=== PATIENT | male | born 1960 | race Caucasian/White ===

== ENCOUNTER → 2018-05-16 | Outpatient (CLI) | payer BC ==
[~2018-05-16] MED LIST: ACET325 PO; AZELASTINE137 MCG/0.; Alavert D-12 A1 EACH PO; Amitiza24 MCG; Aspir 8181 MG PO; BACL10 PO; Baclofen20 MG PO; Balanced B-1001 EACH PO; CHOLEST OFF PL450 MG PO; CO Q10200 MG PO; CYAN500 PO; Coenzyme Q10200 M2 PO; Depo-Testos200 MG/ML IM; Diclofenac Pota50 MG PO; Diovan Hct 1601 EACH PO; EPA-DHA 720 SO1 EACH PO; FAMC500 PO; Flax Oil1000 MG PO; GABA300 PO; GABA600 PO; Garlic500 MG PO; LATA.005SO RIGHTEYE; LATANOPROST 0.7.5 ML RIGHTEYE; LAVAP17G PO; LEVFLO500 PO; LINZESS290 MCG PO; MIRALAX17 GM PO; MOMENI; MOVANTIK25 MG PO; Mobic15 MG PO; Multiple Vitam1 EAC1 PO; NUVIGIL250 MG PO; OCREVUS300 MG/10 IV; OLMESARTAN-HCT1 EAC2 PO; OMEP40CA12 PO; OXYC30ER PO; OXYC40ER PO; OXYC5 PO; Omeprazole20 M1 PO; Oxycontin20 MG PO; PSEU120ER PO; Prilosec Otc20 MG PO; Rapaflo4 MG PO; Rapaflo8 MG PO; SENN187 PO; TAMSULOSIN HCL0.4 MG PO; TECFIDERA240 MG PO; TIMO.5OPSO RIGHTEYE; TIMOLOL 0.5%-DO10 ML BOTHEYES; Tysabri300 MG/15 IV; UBID10 PO; VITAMIN D32000 UNI1 PO; Viagra100 MG PO; Vitamin C1000 M1 PO; XYZAL5 MG PO; Xyzal5 MG PO; Zanaflex4 M1 PO; Zanaflex4 MG PO; [UNRECOGNIZED DRUG - OTHER] TOP
[2018-05-17 16:41] LABS: Appearance, Urine Cloudy (Clear); Bilirubin, Urine Neg (Neg); Blood, Urine 1+ (Neg); Color, Urine Yellow (P-Yellow); Glucose Qualitative, Urine Neg (Neg); Ketones, Urine Neg (Neg); Leukocyte Esterase, Urine 3+ (Neg); Nitrite, Urine Pos (Neg); Protein, Urine Neg (Neg); Urobilinogen, Urine NORM (Normal)
[2018-05-17 16:57] LABS: Bacteria Many /hpf; Red Blood Cells, Urine 0-2 /hpf (0-2); Squamous Epithelial Cells Not Seen /hpf (Few); Triple Phosphate Crystals Many /hpf
== END | disposition home or self-care (01) ==
LOC: LAB 20:00 → LAB SHORT 20:00
PROVIDERS: Psychiatry & Neurology Neurology
DX: R82.90 Unspecified abnormal findings in urine (principal); R30.0 Dysuria
CPT/HCPCS: 81001; 87077; 87086; 87186

== ENCOUNTER → 2018-06-04 | Outpatient (CLI) | payer BC ==
[2018-06-04 14:18] LABS: U Amphetamine Screen Not Detected; U Barbituate Screen Not Detected; U Benzodiazapine Screen Not Detected; U Buprenorphine Screen Not Detected; U Cannabinoids Screen Not Detected; U Cocaine Screen Not Detected; U Methadone Screen Not Detected; U Methamphetamine Screen Not Detected; U Opiates Screen Not Detected; U Oxycodone Screen DETECTED; U Phencyclidine Screen Not Detected; U Propoxyphene Screen Not Detected
== END | disposition home or self-care (01) ==
LOC: LAB 12:44 → LAB SHORT 12:44
PROVIDERS: Family Medicine
DX: G89.29 Other chronic pain (principal); G89.4 Chronic pain syndrome

== ENCOUNTER → 2018-06-11 | Outpatient (CLI) | payer BC | END | disposition home or self-care (01) | LOC: LAB SHORT 17:51 → LAB 17:51 | DX: R30.0 Dysuria (principal); R82.90 Unspecified abnormal findings in urine | CPT/HCPCS: 87077; 87086; 87186 ==

== ENCOUNTER 2018-08-16 08:55 | Day surgery (SDC) | payer BC ==
[~2018-08-16] VITALS: Ht 188 cm; Wt 123.5 kg
== END 2018-08-16 11:17 | disposition home or self-care (01) ==
LOC: ORSCSDS 08:55
PROVIDERS: Internal Medicine Gastroenterology
PROC: 0DJD8ZZ Inspection of Lower Intestinal Tract, Via Natural or Artificial Opening Endoscopic (ICD-10-PCS; principal; 2018-08-16 10:15)
DX: Z12.11 Encounter for screening for malignant neoplasm of colon (principal); G35 Multiple sclerosis; G47.33 Obstructive sleep apnea (adult) (pediatric); K21.9 Gastro-esophageal reflux disease without esophagitis; I10 Essential (primary) hypertension; Z79.899 Other long term (current) drug therapy
CPT/HCPCS: J2704; J7120

== ENCOUNTER → 2018-09-02 | Outpatient (CLI) | payer BC ==
[2018-09-02 08:09] LABS: Bilirubin, Urine Neg (Neg); Blood, Urine Neg (Neg); Glucose Qualitative, Urine Neg (Neg); Ketones, Urine 1+ (Neg); Leukocyte Esterase, Urine 2+ (Neg); Nitrite, Urine Neg (Neg); Protein, Urine 1+ (Neg); Urobilinogen, Urine 1+ (Normal)
[2018-09-02 08:16] LABS: Appearance, Urine Hazy (Clear); Bacteria Mod /hpf; Color, Urine Yellow (P-Yellow); Red Blood Cells, Urine Not Seen /hpf (0-2); Squamous Epithelial Cells Few /hpf (Few)
== END | disposition home or self-care (01) ==
LOC: LAB SHORT 06:20 → LAB 06:20
PROVIDERS: Psychiatry & Neurology Neurology
DX: R30.0 Dysuria (principal); R82.998 Other abnormal findings in urine
CPT/HCPCS: 81001; 87077; 87086; 87186

== ENCOUNTER → 2019-01-20 | Outpatient (CLI) | payer BC ==
[2019-01-20 19:15] LABS: U Amphetamine Screen Not Detected; U Barbituate Screen Not Detected; U Benzodiazapine Screen Not Detected; U Buprenorphine Screen Not Detected; U Cannabinoids Screen Not Detected; U Cocaine Screen Not Detected; U Methadone Screen Not Detected; U Methamphetamine Screen Not Detected; U Opiates Screen Not Detected; U Oxycodone Screen DETECTED; U Phencyclidine Screen Not Detected; U Propoxyphene Screen Not Detected
== END ==
LOC: LAB SHORT 18:20 → LAB 18:20
PROVIDERS: Family Medicine
DX: Z51.81 Encounter for therapeutic drug level monitoring (principal); Z79.899 Other long term (current) drug therapy

== ENCOUNTER → 2019-05-01 | Outpatient (CLI) | payer BC ==
[2019-05-02 09:17] LABS: Source, Urine Catheter
[2019-05-02 11:51] LABS: Appearance, Urine Clear (Clear); Bilirubin, Urine Neg (Neg); Blood, Urine 1+ (Neg); Color, Urine Yellow (P-Yellow); Glucose Qualitative, Urine Neg (Neg); Ketones, Urine Neg (Neg); Leukocyte Esterase, Urine 2+ (Neg); Nitrite, Urine Pos (Neg); Protein, Urine Neg (Neg); Urobilinogen, Urine NORM (Normal)
[2019-05-02 12:05] LABS: Bacteria Many /hpf; Red Blood Cells, Urine 0-2 /hpf (0-2); Squamous Epithelial Cells Rare /hpf (Few)
== END ==
LOC: LAB SHORT 14:00 → LAB 14:00 → LAB FUT 09-04 20:25
PROVIDERS: Family Medicine
DX: N39.41 Urge incontinence (principal); R30.0 Dysuria; R82.90 Unspecified abnormal findings in urine
CPT/HCPCS: 81001; 87077; 87086; 87186

== ENCOUNTER 2020-10-25 10:11 | Inpatient (IN) | payer BC ==
[~2020-10-25] VITALS: Ht 188 cm; Wt 112.0 kg
[2020-10-25 11:15] LABS: BASOPHILS ABSOLUTE AUTO 0.05 K/mm3 (0.00-0.23); BASOPHILS PERCENT AUTO 0 % (0-2); EOSINOPHILS PERCENT AUTO 0 % (0-6); Hematocrit 54.3 % (37.0-53.0); Hemoglobin 19.4 g/dL (13.5-17.5); IMMATURE GRAN ABSOLUTE AUTO 0.16 K/mm3 (0.00-0.10); IMMATURE GRAN PERCENT AUTO 1 % (0-1); LYMPHOCYTES ABSOLUTE AUTO 0.69 K/mm3 (0.84-5.20); LYMPHOCYTES PERCENT AUTO 3 % (21-46); MONOCYTES ABSOLUTE AUTO 0.96 K/mm3 (0.16-1.47); MONOCYTES PERCENT AUTO 4 % (4-13); Mean Corpuscular HGB Conc 35.7 g/dL (31.5-36.5); Mean Corpuscular Volume 87 fL (80-100); NEUTROPHILS ABSOLUTE AUTO 20.87 K/mm3 (1.96-9.15); NEUTROPHILS PERCENT AUTO 92 % (41-73); Platelet Count 236 K/mm3 (150-400); RDW Coefficient Variation 12.3 % (11.7-14.2); RDW Standard Deviation 39.1 fL (35.1-46.3); Red Blood Cell Count 6.25 M/mm3 (4.30-5.90); White Blood Cell Count 22.73 K/mm3 (4.00-11.30)
[2020-10-25 11:23] LABS: Source, Urine Catheter
[2020-10-25 11:25] LABS: Appearance, Urine Clear (Clear); Bilirubin, Urine Neg (Neg); Blood, Urine Neg (Neg); Color, Urine Yellow (P-Yellow); Glucose Qualitative, Urine 4+ (Neg); Ketones, Urine 3+ (Neg); Leukocyte Esterase, Urine 1+ (Neg); Nitrite, Urine Neg (Neg); Protein, Urine Neg (Neg); Urobilinogen, Urine NORM (Normal)
[2020-10-25 11:31] LABS: Troponin I <0.015 ng/mL (0.000-0.040)
[2020-10-25 11:58] LABS: Alanine Aminotransfer (ALT/SGP 39 U/L (12-78); Albumin, Blood 4.2 g/dL (3.4-5.0); Alk Phos 230 U/L (50-136); Anion Gap 17 mmol/L (6-16); Aspartate Aminotrans (AST/SGOT 22 U/L (12-37); Bilirubin, Total 1.3 mg/dL (0.1-1.0); Blood Urea Nitrogen 25 mg/dL (8-24); Bun/Creatinine Ratio 20.2 (12.0-20.0); CO2, Blood 22 mmol/L (21-32); Calcium, Blood 10.6 mg/dL (8.5-10.1); Chloride, Blood 96 mmol/L (98-108); Creatinine, Blood 1.24 mg/dL (0.60-1.20); Globulin, Blood 4.1 g/dL (2.2-4.0); Glomerular Filtration Rate >60 (60-); Glucose, Blood 743 mg/dL (70-99); Potassium, Blood 4.5 mmol/L (3.5-5.5); Sodium, Blood 135 mmol/L (136-145); Total Protein, Blood 8.3 g/dL (6.4-8.2)
[2020-10-25 11:58] LABS: Red Blood Cells, Urine 0-2 /hpf (0-2)
[2020-10-25 11:59] LABS: Bacteria Rare /hpf; Squamous Epithelial Cells Rare /hpf (Few); Yeast/Fungi Urine Few /hpf
[2020-10-25] MEDS ORDERED: CYMBALTA30 M2 PO (12:33)
[2020-10-25] MEDS ORDERED: DEPO-TESTO200 MG/13 IM (12:35)
[2020-10-25] MEDS ORDERED: LEVOCETIRIZINE D5 MG PO (12:35)
[2020-10-25] MEDS ORDERED: PSEU120ER PO (12:36)
[2020-10-25] MEDS ORDERED: ZANAFLEX4 M5 PO (12:37)
[2020-10-25] MEDS ORDERED: IRBESARTAN-HCT1 EAC3 PO (12:37)
[2020-10-25] MEDS ORDERED: OMEP20ER PO (12:37)
[2020-10-25] MEDS ORDERED: ISTALOL2.5 M2 BOTHEYES (12:38)
[2020-10-25] MEDS ORDERED: SILODOSIN8 MG PO (12:38)
[2020-10-25] MEDS ORDERED: MOBIC15 MG PO (12:38)
[2020-10-25] MEDS ORDERED: FLONASE ALLERG9.9 ML (12:44)
[2020-10-25 13:00] LABS: Base Excess Venous -3.5 mmol/L; PCO2 Venous 38.1 mmHg (38-42); PO2 Venous 119 mmHg (38-42); pH Blood Venous 7.37 (7.34-7.37)
[2020-10-25] MEDS ORDERED: Aspirin EC81 MG PO (13:22)
[2020-10-25] MEDS ORDERED: BACL10 PO (13:24)
[2020-10-25] MEDS ORDERED: NITROFURANTOIN PO (13:27)
[2020-10-25] MEDS ORDERED: MULVITA PO (13:29)
[2020-10-25] MEDS ORDERED: THERA-D2000 UNIT PO (13:29)
[2020-10-25 15:39] LABS: Anion Gap 13 mmol/L (6-16); Blood Urea Nitrogen 22 mg/dL (8-24); Bun/Creatinine Ratio 18.8 (12.0-20.0); CO2, Blood 24 mmol/L (21-32); Calcium, Blood 10.4 mg/dL (8.5-10.1); Chloride, Blood 106 mmol/L (98-108); Creatinine, Blood 1.17 mg/dL (0.60-1.20); Glomerular Filtration Rate >60 (60-); Glucose, Blood 447 mg/dL (70-99); Potassium, Blood 4.3 mmol/L (3.5-5.5); Sodium, Blood 143 mmol/L (136-145)
[2020-10-25 19:02] LABS: Source, Urine Catheter
[2020-10-25 19:07] LABS: Appearance, Urine Clear (Clear); Bilirubin, Urine Neg (Neg); Blood, Urine Neg (Neg); Color, Urine Yellow (P-Yellow); Glucose Qualitative, Urine 4+ (Neg); Ketones, Urine 4+ (Neg); Leukocyte Esterase, Urine Neg (Neg); Nitrite, Urine Neg (Neg); Protein, Urine 1+ (Neg); Urobilinogen, Urine NORM (Normal)
--- NOTE | 2020-10-25 19:22 | NUR ---
ADMIT NOTE RECEIVED REPORT FROM LUCERO PT TO ROOM VIA SHARIF, 4 PERSON TRANSFER ASSIST WITH SLIDER SHEET. PT AND SPOUSE ORIENTED TO ROOM AND CALL LIGHT. EDCUATED ON FALL RISK AND BED ALARM. SPOUSE REPORTS FOR APPROX 1-2 WEEKS PT HAS BEEN FEELIN WEAKER, FATIGUED, DIFFICULTY SWALLOWING AND INCREASED WEIGHT LOSS. PT RESPONDING TO VERBAL STIMULI, QUICKLY FALLING BACK TO SLEEP, ORIENTED x4. PT ON RA, SPO2 >94%. PT REPORTS BACK PAIN, SPASAMS, MEDCIATED PER EMAR. PT DENIES NAUSEA, SOB AND DIZZINESS. PT MOVES ALL EXTREMITIES, WEAK. USES WALKER AND ELECTRIC WHEELCHAIR AT HOME TO GET AROUND. RASH TO RIGHT FOREARM MARKED PER ORDERS. BARLOW PLACED, UA SENT PER PROTOCOL. VSS. NO OTHER ACUTE CHANGE NOTED. REPORT GIVEN TO ONCOMING RN.
[2020-10-25 20:46] LABS: Anion Gap 14 mmol/L (6-16); Blood Urea Nitrogen 22 mg/dL (8-24); CO2, Blood 22 mmol/L (21-32); Calcium, Blood 9.6 mg/dL (8.5-10.1); Chloride, Blood 111 mmol/L (98-108); Creatinine, Blood 1.05 mg/dL (0.60-1.20); Glomerular Filtration Rate >60 (60-); Glucose, Blood 351 mg/dL (70-99); Potassium, Blood 3.5 mmol/L (3.5-5.5); Sodium, Blood 147 mmol/L (136-145)
--- NOTE | 2020-10-25 21:10 | NUR ---
HOSPITALIST CONSULTED AC GLUCOSE ORDER VERIFIED WITH HOSPITALIST AT THIS TIME. GLUSCOSE OF 351 OBTAINED BY LAB @1999 WITH NO INSULIN COVERAGE ORDERED. NEW ORDER IS GLUCOSE CHECKS Q2, CALL IF BLOOD SUGAR >350. REPEAT LACTIC ACID ALSO ORDERED AT THIS TIME. IV FLUIDS TO REMAIN @100 ML/HR. PT REMAINS A&O X4. BIOLOGICAL LAB TECHNICIAN NOTIFIED.
[2020-10-26 00:33] LABS: BASOPHILS ABSOLUTE AUTO 0.03 K/mm3 (0.00-0.23); BASOPHILS PERCENT AUTO 0 % (0-2); EOSINOPHILS PERCENT AUTO 0 % (0-6); Hematocrit 49.9 % (37.0-53.0); IMMATURE GRAN ABSOLUTE AUTO 0.13 K/mm3 (0.00-0.10); IMMATURE GRAN PERCENT AUTO 1 % (0-1); LYMPHOCYTES ABSOLUTE AUTO 1.16 K/mm3 (0.84-5.20); LYMPHOCYTES PERCENT AUTO 5 % (21-46); MONOCYTES ABSOLUTE AUTO 0.94 K/mm3 (0.16-1.47); MONOCYTES PERCENT AUTO 4 % (4-13); Mean Corpuscular HGB 31.3 pg (26.0-34.0); Mean Corpuscular HGB Conc 36.1 g/dL (31.5-36.5); Mean Corpuscular Volume 87 fL (80-100); Mean Platelet Volume 11.2 fL (9.1-12.4); NEUTROPHILS ABSOLUTE AUTO 20.02 K/mm3 (1.96-9.15); NEUTROPHILS PERCENT AUTO 90 % (41-73); Platelet Count 245 K/mm3 (150-400); RDW Coefficient Variation 12.8 % (11.7-14.2); RDW Standard Deviation 40.4 fL (35.1-46.3); Red Blood Cell Count 5.75 M/mm3 (4.30-5.90); White Blood Cell Count 22.28 K/mm3 (4.00-11.30)
[2020-10-26 00:48] LABS: Anion Gap 10 mmol/L (6-16); Blood Urea Nitrogen 22 mg/dL (8-24); Bun/Creatinine Ratio 22.9 (12.0-20.0); CO2, Blood 25 mmol/L (21-32); Calcium, Blood 9.2 mg/dL (8.5-10.1); Chloride, Blood 112 mmol/L (98-108); Creatinine, Blood 0.96 mg/dL (0.60-1.20); Glomerular Filtration Rate >60 (60-); Glucose, Blood 280 mg/dL (70-99); Magnesium, Blood 2.5 mg/dL (1.6-2.4); Phosphorus, Blood 2.6 mg/dL (2.5-4.9); Potassium, Blood 3.4 mmol/L (3.5-5.5); Sodium, Blood 147 mmol/L (136-145)
--- NOTE | 2020-10-26 07:37 | NUR ---
SHIFT SUMMARY PT HAS DONE WELL THROUGH THE NIGHT. PAIN MEDICATED PER EMAR WITH IV FENTANYL & DIAZAPAM. REPOSITIONING & GLUCOSE CHECKS Q2 HOURS, ORAL CARE PROVIDED. NO ACUTE CHANGES NOTED TO RIGHT ARM, SWELLING & REDNESS REMAIN WITHIN TRACED AREA. VSS, ON RA, CALL LIGHT IN REACH. REPORT GIVEN TO DAY RN.
[2020-10-26 07:41] LABS: Glucose, Blood 320 mg/dL (70-99)
[2020-10-26 09:16] LABS: Albumin, Blood 3.3 g/dL (3.4-5.0); Anion Gap 18 mmol/L (6-16); Blood Urea Nitrogen 24 mg/dL (8-24); Bun/Creatinine Ratio 23.8 (12.0-20.0); CO2, Blood 19 mmol/L (21-32); Calcium, Blood 9.2 mg/dL (8.5-10.1); Chloride, Blood 112 mmol/L (98-108); Creatinine, Blood 1.01 mg/dL (0.60-1.20); Glomerular Filtration Rate >60 (60-); Glucose, Blood 316 mg/dL (70-99); Magnesium, Blood 2.6 mg/dL (1.6-2.4); Phosphorus, Blood 3.3 mg/dL (2.5-4.9); Potassium, Blood 3.7 mmol/L (3.5-5.5); Sodium, Blood 149 mmol/L (136-145)
[2020-10-26 16:32] LABS: Albumin, Blood 3.1 g/dL (3.4-5.0); Anion Gap 13 mmol/L (6-16); Blood Urea Nitrogen 28 mg/dL (8-24); Bun/Creatinine Ratio 28.6 (12.0-20.0); CO2, Blood 22 mmol/L (21-32); Calcium, Blood 9.2 mg/dL (8.5-10.1); Chloride, Blood 118 mmol/L (98-108); Creatinine, Blood 0.98 mg/dL (0.60-1.20); Glomerular Filtration Rate >60 (60-); Glucose, Blood 260 mg/dL (70-99); Phosphorus, Blood 1.8 mg/dL (2.5-4.9); Potassium, Blood 3.4 mmol/L (3.5-5.5); Sodium, Blood 153 mmol/L (136-145)
--- NOTE | 2020-10-26 17:03 | NUR ---
SHIFT SUMMARY PT A&Ox4; CALM AND COOPERTIAVE WITH CARE. PT RESTING IN BED. REPOSITIONED FOR COMFORT/PRESSURE ULCER PREVENTION. PT REPORTS BACK PAIN, MEDICATED x1 WITH FENT WITH POSITIVE RESULTS. PT DENIES CHEST PAIN, SOB, NASUEA AND DIZZINESS. PT RECEIVIED IV ANTIBIOTICS, FLUIDS AND KPHOS. BLOOD GLUCOSE APPEARS TO BE TRENDING DOWN. BARLOW PATENT AND DRAINING. VSS. NO OTHER ACUTE CHANGES NOTED DURING SHIFT. WILL CONTINUE TO MONITOR UNITL REPORT GIVEN TO ONCOMING RN.
--- NOTE | 2020-10-26 19:52 | NUR ---
ORDERS FOR POTASSIUM PHOSPHATE 30MM IN 1/[address] CLAY, WRITTEN ORDERS SENT TO PHARMACY DURING DOWNTIME CHARTING. MEDICATION STARTED AND CHARTED ON DOWNTIME CHART, MEDICATIONS IS CURRENTLY INFUSING.
[2020-10-27 03:46] LABS: BASOPHILS ABSOLUTE AUTO 0.02 K/mm3 (0.00-0.23); BASOPHILS PERCENT AUTO 0 % (0-2); EOSINOPHILS PERCENT AUTO 0 % (0-6); Hemoglobin 16.5 g/dL (13.5-17.5); IMMATURE GRAN ABSOLUTE AUTO 0.13 K/mm3 (0.00-0.10); IMMATURE GRAN PERCENT AUTO 1 % (0-1); LYMPHOCYTES ABSOLUTE AUTO 1.01 K/mm3 (0.84-5.20); LYMPHOCYTES PERCENT AUTO 6 % (21-46); MONOCYTES ABSOLUTE AUTO 0.88 K/mm3 (0.16-1.47); MONOCYTES PERCENT AUTO 5 % (4-13); Mean Corpuscular HGB 30.7 pg (26.0-34.0); Mean Corpuscular HGB Conc 34.4 g/dL (31.5-36.5); Mean Corpuscular Volume 89 fL (80-100); Mean Platelet Volume 11.1 fL (9.1-12.4); NEUTROPHILS ABSOLUTE AUTO 14.35 K/mm3 (1.96-9.15); NEUTROPHILS PERCENT AUTO 88 % (41-73); Platelet Count 209 K/mm3 (150-400); RDW Coefficient Variation 13.5 % (11.7-14.2); RDW Standard Deviation 44.6 fL (35.1-46.3); Red Blood Cell Count 5.37 M/mm3 (4.30-5.90); White Blood Cell Count 16.39 K/mm3 (4.00-11.30)
[2020-10-27 04:09] LABS: Albumin, Blood 2.9 g/dL (3.4-5.0); Anion Gap 12 mmol/L (6-16); Blood Urea Nitrogen 32 mg/dL (8-24); Bun/Creatinine Ratio 31.7 (12.0-20.0); CO2, Blood 23 mmol/L (21-32); Calcium, Blood 9.1 mg/dL (8.5-10.1); Chloride, Blood 121 mmol/L (98-108); Creatinine, Blood 1.01 mg/dL (0.60-1.20); Glomerular Filtration Rate >60 (60-); Glucose, Blood 234 mg/dL (70-99); Magnesium, Blood 2.7 mg/dL (1.6-2.4); Potassium, Blood 3.7 mmol/L (3.5-5.5); Sodium, Blood 156 mmol/L (136-145)
[2020-10-27 04:11] LABS: Phosphorus, Blood 4.8 mg/dL (2.5-4.9)
--- NOTE | 2020-10-27 05:57 | NUR ---
PATIENT RECEIVED LITTLE SLEEP THIS EVENING REQUESTING REPOSITIONING [id number] RELATED TO PAIN, CALLED MD RECEIVED NEW ORDERS AND PATIENT FELL ASLEEP AROUND 0400, PATIENT IS ALERT AND ORIENTATED ABLE TO MAKE NEEDS KNOWN, BARLOW CATETHER IS PATIENT, STAT LOCK IN PLACE AND BARLOW CARE PROVIDED, ORAL CARE WAS GIVEN Q4HRS AND PRN WITH PATIENT REQUEST. MD ADJUSTED PATIENT FLUIDS AND INCREASED INSULIN SLIDING SCALE FROM LOW TO MEDIUM COVERAGE.
--- NOTE | 2020-10-27 09:27 | NUR ---
Alerted by PCT/ACC that pt had heart rate of 54 bpm. He just received IV dilaudid. Vital signs taken, pt states he is feeling less pain, and has no adverse symptoms. Blood pressure remains slightly elevated, but not as high as this morning. He was repositioned earlier after pain medication was given for c/o lower back pain. Egg crate mattress applied to bed and he was repositioned to comfort.
--- NOTE | 2020-10-27 11:52 | NUR ---
IV compatibility of rocephin and D5W verified at this time. ORal care given. Pt states pain leveled off at 5/10, which he states is "better" and "OK". Declines repositioning at this time.
--- NOTE | 2020-10-27 13:37 | NUR ---
Saline locked IV while working with physical therapist Nicola. at bedside.
[2020-10-27 14:26] LABS: Albumin, Blood 3.2 g/dL (3.4-5.0); Anion Gap 7 mmol/L (6-16); Blood Urea Nitrogen 32 mg/dL (8-24); Bun/Creatinine Ratio 29.9 (12.0-20.0); CO2, Blood 29 mmol/L (21-32); Calcium, Blood 9.6 mg/dL (8.5-10.1); Chloride, Blood 119 mmol/L (98-108); Creatinine, Blood 1.07 mg/dL (0.60-1.20); Glomerular Filtration Rate >60 (60-); Glucose, Blood 246 mg/dL (70-99); Potassium, Blood 3.7 mmol/L (3.5-5.5); Sodium, Blood 155 mmol/L (136-145)
--- NOTE | 2020-10-27 15:00 | NUR ---
Speech therapist Nimco may not be able to see the patient until tomorrow, because of her workload today, but she will definitely see the patient tomorrow, she says. This information was passed along to the patient and his . They expressed disappointment that it may not be until then. Oral care was again done for pt comfort and hygeine. acknowledges that the NPO status is for his "safety."
--- NOTE | 2020-10-28 02:54 | NUR ---
THIS LN TOOK OVER CARE AT 1855 PATIENT IS RESTING IN BED BEGINNING OF SHIFT COMFORTABLY AT 1930 PATIENT ASKED FOR PAIN MEDICATION, PATIENT WAS GIVEN A ONE TIME DOSE OF DILAUDID 1MG IVP AND CURRENT PRN DOSAGE WAS CHANGED FROM DILAUDID 0.5MG IVP Q4P TO 1MG IVP Q4P. PATIENT PAIN CONTROL HAS NOT BEEN CONTROLLED THIS EVENING, REPOSITION AND DISTRACTION UNABLE TO HELP INBETWEEN PAIN MEDICATION. PATIENT DURING THE DAY WAS REPORTED THAT THE DILAUDID 1MG PRN WAS HELPFUL TO HIM. ORAL CARE WAS PROVIDED THROUGH OUT EACH ENCOUNTER AND REPOSITION ABOUT Q1HR. WILL CONTINUE TO MONITOR PAIN AND PROVIDE COMFORT, DISTRACTION, REPOSITIONING AND PAIN MEDICATION WHEN NEEDED.
[2020-10-28 04:00] LABS: Hematocrit 46.4 % (37.0-53.0); Hemoglobin 16.1 g/dL (13.5-17.5); Mean Corpuscular HGB 31.5 pg (26.0-34.0); Mean Corpuscular HGB Conc 34.7 g/dL (31.5-36.5); Mean Corpuscular Volume 91 fL (80-100); Mean Platelet Volume 10.8 fL (9.1-12.4); Platelet Count 173 K/mm3 (150-400); RDW Coefficient Variation 13.3 % (11.7-14.2); RDW Standard Deviation 45.4 fL (35.1-46.3); Red Blood Cell Count 5.11 M/mm3 (4.30-5.90); White Blood Cell Count 10.79 K/mm3 (4.00-11.30)
[2020-10-28 04:20] LABS: Albumin, Blood 2.7 g/dL (3.4-5.0); Anion Gap 6 mmol/L (6-16); Blood Urea Nitrogen 30 mg/dL (8-24); Bun/Creatinine Ratio 31.9 (12.0-20.0); CO2, Blood 28 mmol/L (21-32); Calcium, Blood 9.3 mg/dL (8.5-10.1); Chloride, Blood 120 mmol/L (98-108); Creatinine, Blood 0.94 mg/dL (0.60-1.20); Glomerular Filtration Rate >60 (60-); Glucose, Blood 248 mg/dL (70-99); Phosphorus, Blood 3.1 mg/dL (2.5-4.9); Potassium, Blood 3.2 mmol/L (3.5-5.5); Sodium, Blood 154 mmol/L (136-145)
--- NOTE | 2020-10-28 18:27 | NUR ---
PT CONTINUES TO HAVE ELEVATED CBG'S , INSULIN GIVEN PER EMAR. PT PASSED SWALLOW EVAL. POWER GLIDE PLACED THIS SHIFT . AT BEDSIDE AND ASSISTS WITH PATIENT CARE NEEDED. PT IS ABLE TO EXPRESS ANY NEEDS AND IS A/0 X4. PT WORKED WITH PT THIS SHIFT. TOLERATED WELL. CALL LIGHT WITHIN REACH.
[2020-10-29 04:36] LABS: Hematocrit 42.8 % (37.0-53.0); Hemoglobin 14.8 g/dL (13.5-17.5); Mean Corpuscular HGB Conc 34.6 g/dL (31.5-36.5); Mean Corpuscular Volume 90 fL (80-100); Mean Platelet Volume 10.6 fL (9.1-12.4); Platelet Count 149 K/mm3 (150-400); RDW Coefficient Variation 12.6 % (11.7-14.2); RDW Standard Deviation 41.8 fL (35.1-46.3); Red Blood Cell Count 4.78 M/mm3 (4.30-5.90); White Blood Cell Count 7.77 K/mm3 (4.00-11.30)
[2020-10-29 05:07] LABS: Albumin, Blood 2.5 g/dL (3.4-5.0); Anion Gap 3 mmol/L (6-16); Blood Urea Nitrogen 21 mg/dL (8-24); Bun/Creatinine Ratio 22.4 (12.0-20.0); CO2, Blood 31 mmol/L (21-32); Calcium, Blood 8.8 mg/dL (8.5-10.1); Chloride, Blood 108 mmol/L (98-108); Creatinine, Blood 0.94 mg/dL (0.60-1.20); Glomerular Filtration Rate >60 (60-); Glucose, Blood 258 mg/dL (70-99); Phosphorus, Blood 3.1 mg/dL (2.5-4.9); Potassium, Blood 3.2 mmol/L (3.5-5.5)
[2020-10-29 05:08] LABS: Sodium, Blood 142 mmol/L (136-145)
--- NOTE | 2020-10-29 06:14 | NUR ---
PATIENT SITTING UP IN BED UPON BEGINNING OF SHIFT, EATING, ABLE TO CALL APPROPRIATELY, ALERT AND ORIENTATED THROUGHOUT THE NIGHT, RECEIVED PRN PAIN MEDICATION X 2 THIS SHIFT. PATIENT SLEPT FOR ABOUT TWO HOURS THIS EVENING.
--- NOTE | 2020-10-29 08:00 | NUR ---
pt laying in bed awake a/ox3, pleasant and coopertive with care, follows commands well, denies pain at this time, states his night was ok, lungs are clear, dim in bases, resp even and unlabored, no cough noted, hrr, tele in place running sr per monitor, see strip, no edema noted, ppp+1, cap refill <4, sec, vs stable, afebrile, iv site to lfa is infiltrated, will remove, power glide to patricio site is clear and patent, btx4, abd flat soft nontender, voids without diff, skin c/w/d, rash to folds, left leg a bit weaker than right, states that is his baseline. telephone operator receptionist ar equal, godfrey, call light in reach.
--- NOTE | 2020-10-29 12:44 | NUR ---
DR. CLAY IN TO SEE PT, VERBAL ORDER RECIEVED TO CHANGE PT TO MEDICAL STATUS, D/C TELE.
--- NOTE | 2020-10-29 20:17 | NUR ---
SUMMARY PT IS ALERT AND ORIENTED. DENIED CHEST PAIN OR SOB. PT WAS IN CHAIR AND WAS TRANSFERED TO BED WITH MAX ASSITS OF THREE STAFF, FWW, AND GAIT BELT. PT STS THAT HE IS UNABLE TO MOVE LEFT LEG DUE TO MS. BARLOW IN PLACE AND DRAINING. PT SENT TO ROOM 304 ON MEDICAL FLOOR WITH ALL BELONGINGS. REPORT WAS GIVEN TO NURSE.
--- NOTE | 2020-10-30 04:03 | NUR ---
SHIFT SUMMARY ASSUMED CARE OF PT AT 1930. PT IS A/OX4. HEART SOUNDS REGULAR, LUNG SOUNDS CLEAR. PT BARLOW CATH WAS NOT WORKING UPON TRANSFER, BLADDER SCAN SHOWED 950 AFTER PT URINATED AROUND THE CATHETER, NEW BARLOW WAS INSERTED A SIZE BIGGER, URINE WAS INITIALLY CLEAR BUT THEN CHANTED TO A PINK COLOR. PT STATES HE HAS COMPLAINED OF PAIN SINCE 1400 BUT NO ONE LISTENED TO HIM. PT IS NOT FEELING BETTER, INTIAL AMOUNT DRAINED WAS 850. PT HAS REDNESS AND SWELLING ON HIS L HAND. PT ALSO HAS RED SPOTS IN HIS RICK AREA, MEDICATED PER EMAR. PT IS A 2P ROLL IN BED DUE TO MS. NO OTHER COMPLAINTS, PT SLEPT T/O THE NIGHT. CALL LIGHT IN REACH, BED IN LOWEST POSITION.
[2020-10-30 04:57] LABS: Albumin, Blood 2.5 g/dL (3.4-5.0); Anion Gap 4 mmol/L (6-16); Blood Urea Nitrogen 17 mg/dL (8-24); Bun/Creatinine Ratio 18.3 (12.0-20.0); CO2, Blood 29 mmol/L (21-32); Chloride, Blood 113 mmol/L (98-108); Creatinine, Blood 0.93 mg/dL (0.60-1.20); Glomerular Filtration Rate >60 (60-); Glucose, Blood 172 mg/dL (70-99); Phosphorus, Blood 4.2 mg/dL (2.5-4.9); Potassium, Blood 3.7 mmol/L (3.5-5.5); Sodium, Blood 146 mmol/L (136-145)
--- NOTE | 2020-10-30 17:10 | NUR ---
PT IS A/OX4, PLEASANT AND COOPERATIVE, THE PT IS UP WITH 1-2 PERSON ASSIST, THE PT WORKED WITH THE PHYSICAL THERAPIST TODAY AND WAS ASSISTED TO THE CHAIR AND SAT UP IN THE CHAIR FOR SEVERAL HOURS TODAY, THE PT APPEARED TO BE BREATHING EASILY ON RA T/O THE DAY, THE PT WAS MEDICATED FOR PAIN NEEDED PER HIS REQUEST, THE PT HAD A SOFT BROWN BM TODAY ANTIFUNGAL CREAM WAS APPLIED TO HIS RICK AREA, HEELS ELEVATED ON PILLOWS WHILE IN BED, CALL LIGHT IN REACH, WILL CONTINUE TO MONITOR AND ASSESS FOR CHANGES
--- NOTE | 2020-10-31 04:05 | NUR ---
SHIFT SUMMARY NO ACUTE CHANGS TO REPORT THIS SHIFT. PT HAS RESTED MOST OF THE NIGHT. MEDICATED FOR PAIN X1. BARLOW IN PLACE, PATENT AND DRAINING. PT DENIES NEEDS MOST OF THE NIGHT. BED IN LOWEST POSITION, CALL LIGHT WITHIN REACH.
[2020-10-31 05:25] LABS: Albumin, Blood 2.4 g/dL (3.4-5.0); Anion Gap 4 mmol/L (6-16); Blood Urea Nitrogen 13 mg/dL (8-24); CO2, Blood 29 mmol/L (21-32); Calcium, Blood 8.7 mg/dL (8.5-10.1); Chloride, Blood 111 mmol/L (98-108); Creatinine, Blood 0.86 mg/dL (0.60-1.20); Glomerular Filtration Rate >60 (60-); Glucose, Blood 222 mg/dL (70-99); Phosphorus, Blood 3.6 mg/dL (2.5-4.9); Potassium, Blood 3.5 mmol/L (3.5-5.5); Sodium, Blood 144 mmol/L (136-145)
--- NOTE | 2020-10-31 17:28 | NUR ---
PT IS A/OX3, PLEASANT AND COOPERATIVE, UP WITH 1-2 PERSON ASSIST TO THE CHAIR DUE TO MS. THE PT WAS UP IN CHAIR FOR SEVERAL HOURS TODAY, NOW BACK INTO BED, A BED BATH WAS GIVEN BY THE FINANCIAL DEALERS, THE PT WAS MEDICATED FOR PAIN NEEDED PER HIS REQUEST, THE PT APPEARS TO BE BREATHING EASILY ON RA AT THIS TIME, CALL LIGHT IN REACH, WILL CONTINUE TO MONITOR AND ASSESS FOR CHANGES
--- NOTE | 2020-10-31 18:31 | NUR ---
PT ARRIVED TO THE MEDICAL FLOOR VIA GURNEY FROM THE ER A/OX3, PLEASANT AND COOPERTIVE, REPORTS ONLY MILD CHEST PRESSURE AT THIS TIME, THE PT REPORTED SOME LIGHT HEADEDNESS WHEN STANDING, PT ORIENYED TO THE ROOM LAYOUT AND CALL SYSTEM, CALL LIGHT IN REACH
[2020-11-01 05:11] LABS: Albumin, Blood 2.3 g/dL (3.4-5.0); Anion Gap 3 mmol/L (6-16); Blood Urea Nitrogen 9 mg/dL (8-24); Bun/Creatinine Ratio 9.7 (12.0-20.0); CO2, Blood 29 mmol/L (21-32); Calcium, Blood 8.7 mg/dL (8.5-10.1); Chloride, Blood 110 mmol/L (98-108); Creatinine, Blood 0.93 mg/dL (0.60-1.20); Glomerular Filtration Rate >60 (60-); Glucose, Blood 181 mg/dL (70-99); Phosphorus, Blood 3.6 mg/dL (2.5-4.9); Potassium, Blood 3.5 mmol/L (3.5-5.5); Sodium, Blood 142 mmol/L (136-145)
--- NOTE | 2020-11-01 05:28 | NUR ---
SHIFT SUMMARY: PT IS ALERT AND ORIENTED. PT IS CALM, FRIENDLY AND COOPERATIVE WITH CARE. PT IS A 1-2 ASSIST FOR TRANSFERS. PT CALLS APPROPRIATELY. BARLOW PATENT AND DRAINING. IN VISITING AT THE START OF THE SHIFT. PT DENIES PAIN, NAUSEA, VOMITING, AND SOB. PT SLEPT MUCH OF THE NIGHT WHEN NOT DISTURBED. NO ACUTE CHANGES OR COMPLICATIONS. WILL REPORT TO DAY NURSE.
[2020-11-01 14:10] LABS: SARS-Cov-2 (COVID-19) PCR, MMC NEGATIVE (NEGATIVE)
--- NOTE | 2020-11-01 15:57 | NUR ---
SHIFT SUMMARY PT IS A&O, PLEASANT AND CO-OP. PT ADMITTED FOR SEPSIS R/T UTI. IV ABX GIVEN PER EMAR. BARLOW TO GRAVITY PATENT. PT WITH HX OF MS, REPORTED THAT HE NORMALLY SELF CATH'S, BUT HAS BEEN TOO WEAK TO PRESENT TO RESUME THAT. PT IS IMPROVING AND IS D/C'ING TO SNF FOR REHAB. PT TO RESUME SELF CATH WHEN ABLE. REPORT CALLED TO JOSE HEREDIA AT [facility] @ 1551. PT TO BE PICKED UP FOR TX AT 1600. STUART HEREDIA TO ASSIST TO W/C.
[2020-11-01] MEDS ORDERED: INSULANPEN SC (17:49)
[2020-11-01] MEDS ORDERED: ACET325 PO (17:49)
[2020-11-01] MEDS ORDERED: NOVOLOG FL100 UNIT/3 SC (17:51)
[2020-11-01] MEDS ORDERED: INSULIN AS100 UNIT/8 SC (17:53)
[2020-11-01] MEDS ORDERED: IRBE150 PO (17:53)
[2020-11-01] MEDS ORDERED: NYSTRIT TOP (17:53)
== END 2020-11-01 16:13 | DRG 698 ==
LOC: ER 10:11 → ICUW 13:01 → PCU 13:01 → MEDS 10-29 19:53 → ENPENDDIS 11-01 14:40 → MEDS 11-01 16:13
PROVIDERS: Emergency Medicine; Internal Medicine; Nurse Practitioner Acute Care; ADMIT Internal Medicine
DX: T83.511A Infection and inflammatory reaction due to indwelling urethral catheter, initial encounter (principal); E11.10 Type 2 diabetes mellitus with ketoacidosis without coma; A41.9 Sepsis, unspecified organism; E87.0 Hyperosmolality and hypernatremia; F11.20 Opioid dependence, uncomplicated; L03.113 Cellulitis of right upper limb; E87.6 Hypokalemia; Z20.822 Contact with and (suspected) exposure to COVID-19; R13.10 Dysphagia, unspecified; G35 Multiple sclerosis; E78.5 Hyperlipidemia, unspecified; G47.33 Obstructive sleep apnea (adult) (pediatric); K21.9 Gastro-esophageal reflux disease without esophagitis; I10 Essential (primary) hypertension; G89.4 Chronic pain syndrome; N31.9 Neuromuscular dysfunction of bladder, unspecified; N40.0 Benign prostatic hyperplasia without lower urinary tract symptoms; N39.0 Urinary tract infection, site not specified; Z79.899 Other long term (current) drug therapy; Z98.890 Other specified postprocedural states; Z98.52 Vasectomy status; Y84.6 Urinary catheterization as the cause of abnormal reaction of the patient, or of later complication, without mention of misadventure at the time of the procedure
CPT/HCPCS: 36415; 51702; 71045; 80048; 80053; 80069; 81001; 82010; 82803; 82947; 83036; 83605; 83735; 84100; 84484; 85025; 85027; 87040; 87086; 92526; 92610; 93005; 93010; 96361; 96365; 97110; 97112; 97162; 97166; 97530; 97535; 99285-25; A9270; C1751; C9113; J0696; J1170; J1650; J1815; J3010; J3360; J3480; J7030; J7050; J7070; U0004

== ENCOUNTER 2022-12-02 15:30 | Emergency (ER) | payer BC ==
[~2022-12-02] VITALS: Ht 188 cm; Wt 147.4 kg
[~2022-12-02 15:30] MED LIST changes: +Aspirin EC81 MG PO; +CYMBALTA30 M2 PO; +DEPO-TESTO200 MG/13 IM; +FLONASE ALLERG9.9 ML; -GABA600 PO; +INSULANPEN SC; +INSULIN AS100 UNIT/8 SC; +IRBE150 PO; +IRBESARTAN-HCT1 EAC3 PO; +ISTALOL2.5 M2 BOTHEYES; -LATANOPROST 0.7.5 ML RIGHTEYE; +LEVOCETIRIZINE D5 MG PO; +MOBIC15 MG PO; +MULVITA PO; +NITROFURANTOIN PO; +NOVOLOG FL100 UNIT/3 SC; +NYSTRIT TOP; +OMEP20ER PO; +SILODOSIN8 MG PO; +THERA-D2000 UNIT PO; +ZANAFLEX4 M5 PO
[2022-12-02 16:10] LABS: BASOPHILS ABSOLUTE AUTO 0.07 K/mm3 (0.00-0.23); BASOPHILS PERCENT AUTO 1 % (0-2); EOSINOPHILS ABSOLUTE AUTO 0.13 K/mm3 (0.00-0.68); EOSINOPHILS PERCENT AUTO 1 % (0-6); Hemoglobin 14.5 g/dL (13.5-17.5); IMMATURE GRAN ABSOLUTE AUTO 0.08 K/mm3 (0.00-0.10); IMMATURE GRAN PERCENT AUTO 1 % (0-1); LYMPHOCYTES ABSOLUTE AUTO 1.64 K/mm3 (0.84-5.20); LYMPHOCYTES PERCENT AUTO 11 % (21-46); MONOCYTES ABSOLUTE AUTO 1.34 K/mm3 (0.16-1.47); MONOCYTES PERCENT AUTO 9 % (4-13); Mean Corpuscular HGB 30.9 pg (26.0-34.0); Mean Corpuscular HGB Conc 35.4 g/dL (31.5-36.5); Mean Corpuscular Volume 87 fL (80-100); Mean Platelet Volume 9.5 fL (9.1-12.4); NEUTROPHILS ABSOLUTE AUTO 11.22 K/mm3 (1.96-9.15); NEUTROPHILS PERCENT AUTO 77 % (41-73); Platelet Count 241 K/mm3 (150-400); RDW Coefficient Variation 13.1 % (11.7-14.2); RDW Standard Deviation 41.5 fL (35.1-46.3); Red Blood Cell Count 4.69 M/mm3 (4.30-5.90); White Blood Cell Count 14.48 K/mm3 (4.00-11.30)
[2022-12-02 16:32] LABS: Albumin, Blood 3.5 g/dL (3.4-5.0); Albumin/Globulin Ratio 0.9 (0.8-1.8); Bilirubin, Total 1.3 mg/dL (0.1-1.0); Bun/Creatinine Ratio 16.1 (12.0-20.0); Calcium, Blood 9.2 mg/dL (8.5-10.1); Creatinine, Blood 1.12 mg/dL (0.60-1.20); Globulin, Blood 3.7 g/dL (2.2-4.0); Total Protein, Blood 7.2 g/dL (6.4-8.2)
[2022-12-02 18:40] LABS: Source, Urine Voided
[2022-12-02 18:45] LABS: Appearance, Urine Clear (Clear); Bilirubin, Urine Neg (Neg); Blood, Urine 3+ (Neg); Color, Urine Amber (P-Yellow); Glucose Qualitative, Urine Neg (Neg); Ketones, Urine 1+ (Neg); Leukocyte Esterase, Urine 1+ (Neg); Nitrite, Urine Neg (Neg); Protein, Urine 2+ (Neg); Specific Gravity, Urine 1.015 (1.003-1.022); Urobilinogen, Urine 1+ (Normal)
[2022-12-02 18:51] LABS: Squamous Epithelial Cells Few /hpf (Few)
[2022-12-02 18:52] LABS: Bacteria Mod /hpf
[2022-12-02 20:00] VITALS: BP 132/84
[2022-12-02] MEDS ORDERED: CEPHALEXIN500 M1 PO (20:03)
[2022-12-02] MEDS ORDERED: Prednisone20 MG PO (20:03)
== END 2022-12-02 21:20 | disposition home or self-care (01) ==
LOC: ER 15:30
PROVIDERS: Emergency Medicine
DX: S92.355A Nondisplaced fracture of fifth metatarsal bone, left foot, initial encounter for closed fracture (principal); G35 Multiple sclerosis; N39.0 Urinary tract infection, site not specified; Z79.82 Long term (current) use of aspirin; Z79.899 Other long term (current) drug therapy; Z79.4 Long term (current) use of insulin; W05.0XXA Fall from non-moving wheelchair, initial encounter
CPT/HCPCS: 51701; 70450; 71101; 73610; 80053; 81001; 85025; 87077; 87086; 87186; 96365; 99285-25; J0696; J7512

== ENCOUNTER 2022-12-04 12:16 | Inpatient (IN) | payer BC ==
[~2022-12-04] VITALS: Ht 182.9 cm; Wt 138.2 kg
[~2022-12-04 12:16] MED LIST changes: +CEPHALEXIN500 M1 PO; +Prednisone20 MG PO
[2022-12-04 12:59] LABS: BASOPHILS ABSOLUTE AUTO 0.07 K/mm3 (0.00-0.23); BASOPHILS PERCENT AUTO 0 % (0-2); EOSINOPHILS ABSOLUTE AUTO 0.36 K/mm3 (0.00-0.68); EOSINOPHILS PERCENT AUTO 2 % (0-6); Hematocrit 39.7 % (37.0-53.0); Hemoglobin 13.6 g/dL (13.5-17.5); IMMATURE GRAN ABSOLUTE AUTO 0.13 K/mm3 (0.00-0.10); IMMATURE GRAN PERCENT AUTO 1 % (0-1); LYMPHOCYTES ABSOLUTE AUTO 2.19 K/mm3 (0.84-5.20); LYMPHOCYTES PERCENT AUTO 12 % (21-46); MONOCYTES ABSOLUTE AUTO 1.45 K/mm3 (0.16-1.47); MONOCYTES PERCENT AUTO 8 % (4-13); Mean Corpuscular HGB 30.7 pg (26.0-34.0); Mean Corpuscular HGB Conc 34.3 g/dL (31.5-36.5); Mean Corpuscular Volume 90 fL (80-100); Mean Platelet Volume 10.2 fL (9.1-12.4); NEUTROPHILS ABSOLUTE AUTO 14.86 K/mm3 (1.96-9.15); NEUTROPHILS PERCENT AUTO 78 % (41-73); Platelet Count 261 K/mm3 (150-400); RDW Coefficient Variation 13.3 % (11.7-14.2); RDW Standard Deviation 43.8 fL (35.1-46.3); Red Blood Cell Count 4.43 M/mm3 (4.30-5.90); White Blood Cell Count 19.06 K/mm3 (4.00-11.30)
[2022-12-04 13:21] LABS: Albumin/Globulin Ratio 0.7 (0.8-1.8); Bilirubin, Total 0.6 mg/dL (0.1-1.0); Bun/Creatinine Ratio 15.9 (12.0-20.0); Calcium, Blood 9.4 mg/dL (8.5-10.1); Creatinine, Blood 3.28 mg/dL (0.60-1.20); Globulin, Blood 4.1 g/dL (2.2-4.0); Potassium, Blood 3.4 mmol/L (3.5-5.5); Total Protein, Blood 7.1 g/dL (6.4-8.2)
[2022-12-04] MEDS ORDERED: INSULANI SC (14:45)
[2022-12-04] MEDS ORDERED: AVONEX PEN30 MCG/0.2 IM (14:46)
[2022-12-04] MEDS ORDERED: TIZA4 PO (15:00)
[2022-12-04] MEDS ORDERED: ALPR.5 PO (15:02)
[2022-12-04] MEDS ORDERED: CLON.5 PO ×2 (15:03→16:07)
[2022-12-04 15:04] LABS: Source, Urine Foley catheter
[2022-12-04 15:07] LABS: Appearance, Urine Hazy (Clear); Bilirubin, Urine Neg (Neg); Blood, Urine 5+ (Neg); Color, Urine Yellow (P-Yellow); Glucose Qualitative, Urine 1+ (Neg); Ketones, Urine Neg (Neg); Leukocyte Esterase, Urine 1+ (Neg); Nitrite, Urine Neg (Neg); Protein, Urine 3+ (Neg); Specific Gravity, Urine 1.015 (1.003-1.022); Urobilinogen, Urine NORM (Normal)
[2022-12-04 15:14] LABS: Bacteria Many /hpf; Squamous Epithelial Cells Few /hpf (Few)
[2022-12-04 15:15] LABS: Mucus Light (0-Heavy); Yeast/Fungi Urine Rare /hpf
[2022-12-04 16:43] VITALS: BP 149/71
[2022-12-04 19:38] VITALS: BP 156/82
--- NOTE | 2022-12-05 01:42 | NUR ---
TELEMETRY EVENT THIS RN WAS INFORMED BY TELEPHONE ORDER SUPERVISOR THAT PATIENT'S HR WAS SUSTAINING 120-130'S. SUBSEQUENTLY THIS RN NOTIFIED DR. SCHREIBER OF THIS FINDINGS AND AN ORDER TO INCREASE NS FROM 100ML/HR TO 150ML/HR WAS OBTAINED. THIS RN WILL CONTINUE TO CLOSELY MONITOR.
--- NOTE | 2022-12-05 04:26 | NUR ---
SUPERVISOR FURNACE PROCESS SUMMARY NO ACUTE EVENTS OVERNIGHT. A&OX4. PATIENT EFFECTIVELY COMMUNICATES NEEDS. SLOW SPEECH. VSS. RR EVEN AND UNLABORED ON 2L/MIN O2. TELE REVEALS SINUS TACHYCARDIA. DR. SCHREIBER NOTIFIED OF THIS AND IV NS INCREASED TO 150ML/HR. BARLOW CATHETER DRAINING YELLOW-COLORED URINE TO GRAVITY. PATIENT DENIES PAIN. BED LOW AND LOCKED. CALL LIGHT WITHIN REACH. THIS RN WILL CONTINUE TO CLOSELY MONITOR.
[2022-12-05 04:46] VITALS: BP 145/85
[2022-12-05 05:31] LABS: BASOPHILS ABSOLUTE AUTO 0.04 K/mm3 (0.00-0.23); BASOPHILS PERCENT AUTO 0 % (0-2); EOSINOPHILS ABSOLUTE AUTO 0.12 K/mm3 (0.00-0.68); EOSINOPHILS PERCENT AUTO 1 % (0-6); Hematocrit 42.9 % (37.0-53.0); Hemoglobin 14.8 g/dL (13.5-17.5); IMMATURE GRAN ABSOLUTE AUTO 0.08 K/mm3 (0.00-0.10); IMMATURE GRAN PERCENT AUTO 1 % (0-1); LYMPHOCYTES ABSOLUTE AUTO 1.76 K/mm3 (0.84-5.20); LYMPHOCYTES PERCENT AUTO 11 % (21-46); MONOCYTES ABSOLUTE AUTO 1.42 K/mm3 (0.16-1.47); MONOCYTES PERCENT AUTO 9 % (4-13); Mean Corpuscular HGB 30.6 pg (26.0-34.0); Mean Corpuscular HGB Conc 34.5 g/dL (31.5-36.5); Mean Corpuscular Volume 89 fL (80-100); Mean Platelet Volume 10.3 fL (9.1-12.4); NEUTROPHILS ABSOLUTE AUTO 12.72 K/mm3 (1.96-9.15); NEUTROPHILS PERCENT AUTO 79 % (41-73); Platelet Count 327 K/mm3 (150-400); RDW Coefficient Variation 13.3 % (11.7-14.2); RDW Standard Deviation 43.4 fL (35.1-46.3); Red Blood Cell Count 4.84 M/mm3 (4.30-5.90); White Blood Cell Count 16.14 K/mm3 (4.00-11.30)
[2022-12-05 06:13] LABS: Albumin, Blood 2.9 g/dL (3.4-5.0); Albumin/Globulin Ratio 0.6 (0.8-1.8); Bilirubin, Total 0.8 mg/dL (0.1-1.0); Calcium, Blood 9.4 mg/dL (8.5-10.1); Creatinine, Blood 1.48 mg/dL (0.60-1.20); Globulin, Blood 4.5 g/dL (2.2-4.0); Potassium, Blood 3.8 mmol/L (3.5-5.5); Total Protein, Blood 7.4 g/dL (6.4-8.2)
[2022-12-05 08:00] VITALS: BP 137/74
--- NOTE | 2022-12-05 12:45 | NUR ---
THIS RN ASSUMED CARE OF PT AT THIS TIME. DR. DE LA ROSA CONTACTED REGUARDING SPOUSE CONCERN OF BACTRIM-PLAN TO ADMINISTER LOWER DOSE ORDERED
[2022-12-05 15:20] VITALS: BP 139/103
--- NOTE | 2022-12-05 18:22 | NUR ---
SHIFT SUMMARY PT A&O3 AND IN PLEASENT MOOD T/O SHIFT. FAMILY AT BEDSIDE T/O SHIFT. TOLERATING PO INTAKE WELL. PT RESTING IN BED T/O SHIFT. CALL LIGHT W/IN REACH. VSS. BACLOFEN REINITIATED THIS SHIFT.
[2022-12-05 19:37] VITALS: BP 141/98
[2022-12-06 02:12] VITALS: BP 151/92
[2022-12-06 07:24] VITALS: BP 155/89
[2022-12-06 10:48] VITALS: BP 134/88
[2022-12-06 14:30] VITALS: BP 165/103
[2022-12-06 17:26] VITALS: BP 159/109
--- NOTE | 2022-12-06 17:38 | NUR ---
PHYSICIAN CALL CONTACTED DR. DE LA ROSA REGARDING PT PROFUSELY SWEATING, ELEVATED DIASTOLIC BLOOD PRESSURE READINGS AND CONTINUED ELEVATED BLOOD GLUCOSE READINGS. DOC DENIED THE NEED FOR FURTHER ACTION AND STATED TO JUST WATCH THIS PATIENT.
--- NOTE | 2022-12-06 17:43 | NUR ---
SHIFT SUMMARY PT IN BED MOST OF SHIFT, UNSAFE TO TRANSFER PER PT, UNTIL HE HAS HOME EQUIPMENT PRESENT WHICH SPOUSE WILL BRING TOMORROW. BARLOW CATH PRESENT AND DRAINING WELL, RECEIVED ABX WITH NO COMPLICATIONS. POWERGLIDE PATENT WITH GOOD BLOOD RETURN. EDUCATED ON FIRE SAFETY, DENIES HAVING ANY IGNITION SOURCES, VISITORS DENY THE SAME. WEANED TO ROOM AIR THIS SHIFT.
[2022-12-06 19:19] VITALS: BP 152/120
[2022-12-07] VITALS (8 sets, daily range): BP systolic 136–176; BP diastolic 93–112
--- NOTE | 2022-12-07 04:39 | NUR ---
PT IS A&O2-3 MOMENTS OF CONFUSION TO TIME, RA, NO COMPLAINTS OF PAIN OVERNIGHT OR ACUTE OVERNIGHT EVENTS, FIRE SAFETY EDUCATION PROVIDED, CONTINUE POC
[2022-12-07 06:05] LABS: BASOPHILS ABSOLUTE AUTO 0.09 K/mm3 (0.00-0.23); BASOPHILS PERCENT AUTO 1 % (0-2); EOSINOPHILS ABSOLUTE AUTO 0.53 K/mm3 (0.00-0.68); EOSINOPHILS PERCENT AUTO 3 % (0-6); Hematocrit 45.6 % (37.0-53.0); Hemoglobin 15.6 g/dL (13.5-17.5); IMMATURE GRAN ABSOLUTE AUTO 0.21 K/mm3 (0.00-0.10); IMMATURE GRAN PERCENT AUTO 1 % (0-1); LYMPHOCYTES ABSOLUTE AUTO 2.55 K/mm3 (0.84-5.20); LYMPHOCYTES PERCENT AUTO 15 % (21-46); MONOCYTES ABSOLUTE AUTO 0.97 K/mm3 (0.16-1.47); MONOCYTES PERCENT AUTO 6 % (4-13); Mean Corpuscular HGB 30.5 pg (26.0-34.0); Mean Corpuscular HGB Conc 34.2 g/dL (31.5-36.5); Mean Corpuscular Volume 89 fL (80-100); NEUTROPHILS ABSOLUTE AUTO 12.17 K/mm3 (1.96-9.15); NEUTROPHILS PERCENT AUTO 74 % (41-73); Platelet Count 388 K/mm3 (150-400); RDW Standard Deviation 42.7 fL (35.1-46.3); Red Blood Cell Count 5.12 M/mm3 (4.30-5.90); White Blood Cell Count 16.52 K/mm3 (4.00-11.30)
[2022-12-07 06:26] LABS: Bun/Creatinine Ratio 32.9 (12.0-20.0); Calcium, Blood 9.8 mg/dL (8.5-10.1); Creatinine, Blood 0.91 mg/dL (0.60-1.20); Potassium, Blood 3.8 mmol/L (3.5-5.5)
--- NOTE | 2022-12-07 18:34 | NUR ---
SHIFT SUMMARY- PT ALERT AND ORIENTED X 2-3 OCCASSIONALLY CONFUSED. PT WAS CERTAIN TODAY THERE WAS SOMEONE WALKING ON THE ROOF ABOVE HIM, HE WAS SURE THERE WAS DUST FALLIG FROM THE CIELING WITH EACH STEP THE PERSON WAS WALKING AROUND. THIS LASTED FOR A COUPLE HOURS. PT IS VERY SWEATY TODAY WELL, NO MEASURABLE FEVER EITHER ORALLY OR TEMPORALLY. PT DENIED ANY DISCOMFORT, DENIES N/T, BG AND BP STABLE. BG AC/HS, BID LANTUS. PT IN BED EATING DINNER AT THIS TIME,PG DRESSING CHANGED AT THE END OF THE SHIFT, FLUSHES AND HAS GOOD BLOOD RETURN AFTER DRESSING CHANGE. PT IN BED, CALL LIGHT IN REACH NO S&S OF DISTRESS AT THIS TIME.
--- NOTE | 2022-12-08 04:19 | NUR ---
PT IS A&O2-3 HAS MOMENTS OF CONFUSION, AND VISUAL DISTURBANCES PT STATED HE SAW SOMEONE WORKING ON THE ROOF, AND THAT WATER OR DUST WAS FLOATING IN THE AIR", BEDREST WITH CAIN CELESTIN RA, NO ACUTE OVERNIGHT EVENTS, FIRE SAFETY MITIGATION EDUCATION PROVIDED, CONTINUE POC
[2022-12-08 04:55] VITALS: BP 144/86
--- NOTE | 2022-12-08 08:55 | NUR ---
pt laying in bed awake a/ox3, forgetful at times, cooperative with care, follows commands well, denies pain at this time, lungs are clear t/o, resp even and unlabored, no cough noted, hrr, no edema noted, ppp+2, cap refill <3sec, vs stable, afebrile, iv is power glide to patricio site is clear and patent, btx4, abd flat soft nontender, voids via raygoza cath draining yellow urine, skin c/w/d, godfrey trinidad, call light in reach.
[2022-12-08] MEDS ORDERED: GABA300 PO (11:49)
[2022-12-08] MEDS ORDERED: AMLO5 PO (11:59)
[2022-12-08 15:21] VITALS: BP 140/91
--- NOTE | 2022-12-08 15:50 | NUR ---
OBTAINING A LIFT FOR PT IS IN PROCESS, PT IS READY TO TAKE HIM HOME, STATES A HOSP BED IS BEING DELIVERED, PT TRANSFERED TO HIS WHEELCHAIR WITH GATEBELT, IV REMOVED INTACT, HAS ALL BELONGINGS, WENT OVER DISCHARGE INSTRUCTION WITH HIM AND SPOUCE, THEY VERBALIZED UNDERSTANDNING, LEFT VIA WHEELCHAIR WITH FAMILY IN ATTENDENCE.
== END 2022-12-08 17:00 | disposition home or self-care (01) | DRG 698 ==
LOC: ER 12:16 → MEDS 15:17 → ENPENDDIS 12-08 10:02 → MEDS 12-08 17:00
PROVIDERS: Emergency Medicine; ADMIT Internal Medicine
PROC: 0T9B70Z Drainage of Bladder with Drainage Device, Via Natural or Artificial Opening (ICD-10-PCS; 2022-12-04)
PROC: 3E03329 Introduction of Other Anti-infective into Peripheral Vein, Percutaneous Approach (ICD-10-PCS; principal; 2022-12-05)
DX: T83.511A Infection and inflammatory reaction due to indwelling urethral catheter, initial encounter (principal); A41.89 Other specified sepsis; G92.8 Other toxic encephalopathy; R65.20 Severe sepsis without septic shock; N17.9 Acute kidney failure, unspecified; G35 Multiple sclerosis; H40.9 Unspecified glaucoma; F32.A Depression, unspecified; N18.30 Chronic kidney disease, stage 3 unspecified; Z51.5 Encounter for palliative care; G89.4 Chronic pain syndrome; E86.0 Dehydration; B96.4 Proteus (mirabilis) (morganii) as the cause of diseases classified elsewhere; I12.9 Hypertensive chronic kidney disease with stage 1 through stage 4 chronic kidney disease, or unspecified chronic kidney disease; E11.22 Type 2 diabetes mellitus with diabetic chronic kidney disease; N40.0 Benign prostatic hyperplasia without lower urinary tract symptoms; R00.0 Tachycardia, unspecified; Z98.52 Vasectomy status; Z98.890 Other specified postprocedural states; Y84.6 Urinary catheterization as the cause of abnormal reaction of the patient, or of later complication, without mention of misadventure at the time of the procedure
CPT/HCPCS: 36415; 51702; 51798; 80048; 80053; 81001; 82947; 83605; 85025; 87086; 92610; 93005; 93010; 96365-59; 96366-59; 97110; 97162; 97530; 99285-25; A9270; C1751; J0696; J1650; J1815; J7030

== ENCOUNTER → 2022-12-11 | Outpatient (CLI) | payer BC ==
[~2022-12-11] MED LIST changes: +ALPR.5 PO; +AMLO5 PO; +AVONEX PEN30 MCG/0.2 IM; +CLON.5 PO; +INSULANI SC; +TIZA4 PO
== END ==
LOC: LAB SHORT 13:11 → LAB 13:11
DX: N39.0 Urinary tract infection, site not specified (principal)
CPT/HCPCS: 87077; 87086; 87186

== ENCOUNTER 2023-01-04 14:30 | Day surgery (SDC) | payer BC ==
[2023-01-04 15:11] VITALS: BP 126/80
--- NOTE | 2023-01-04 15:30 | NUR ---
PATIENTS RABIA RN WITH THE PATIENT. PATIENT AND HIS BOTH INSIST THAT SHE INSERT HIS CATHETER. THIS RN PRESENT AND ASSISTED WITH CATH INSERTION. NOT ENUGH URINE FOR SAMPLE SO PATIENT AND FAMILY ARE WAITING FOR A SAMPLE BIG ENUGH FOR COLLECTION.
[2023-01-04 16:06] LABS: Source, Urine Foley catheter
[2023-01-04 16:14] LABS: Appearance, Urine Cloudy (Clear); Bilirubin, Urine Neg (Neg); Blood, Urine 5+ (Neg); Color, Urine Yellow (P-Yellow); Glucose Qualitative, Urine Neg (Neg); Ketones, Urine Neg (Neg); Leukocyte Esterase, Urine 3+ (Neg); Nitrite, Urine Pos (Neg); Protein, Urine 4+ (Neg); Urobilinogen, Urine NORM (Normal)
[2023-01-04 16:23] LABS: Bacteria Many /hpf; Red Blood Cells, Urine TNTC /hpf (0-2); White Blood Cells, Urine TNTC /hpf (0-5)
[2023-01-04 16:24] LABS: Renal Epithelial Few /hpf (0-Rare); Squamous Epithelial Cells Rare /hpf (Few)
== END 2023-01-04 15:50 | disposition home or self-care (01) ==
LOC: ATC 14:30
PROVIDERS: Family Medicine
DX: N39.0 Urinary tract infection, site not specified (principal); G04.90 Encephalitis and encephalomyelitis, unspecified; E66.01 Morbid (severe) obesity due to excess calories; Z96.0 Presence of urogenital implants
CPT/HCPCS: 51702; 81001; 87077; 87086; 87186

== ENCOUNTER → 2023-01-22 | Outpatient (CLI) | payer BC | LOC: LAB 14:05 → LAB SHORT 14:05 | DX: N39.0 Urinary tract infection, site not specified (principal) | CPT/HCPCS: 87077; 87086; 87186 ==

== ENCOUNTER 2023-02-02 03:01 | Day surgery (SDC) | payer BC ==
[2023-02-02 11:35] VITALS: BP 139/87
[2023-02-02 12:28] LABS: Source, Urine Foley catheter
[2023-02-02 12:34] LABS: Appearance, Urine Hazy (Clear); Bilirubin, Urine Neg (Neg); Blood, Urine 5+ (Neg); Color, Urine Yellow (P-Yellow); Glucose Qualitative, Urine Neg (Neg); Ketones, Urine Neg (Neg); Leukocyte Esterase, Urine 3+ (Neg); Nitrite, Urine Neg (Neg); Protein, Urine 3+ (Neg); Urobilinogen, Urine NORM (Normal)
[2023-02-02 12:56] LABS: Red Blood Cells, Urine 25-50 /hpf (0-2); White Blood Cells, Urine 50-100 /hpf (0-5)
[2023-02-02 12:58] LABS: Bacteria Many /hpf; Squamous Epithelial Cells Rare /hpf (Few)
[2023-02-02 13:01] LABS: Renal Epithelial Few /hpf (0-Rare)
[2023-02-02 13:02] LABS: Mucus Mod (0-Heavy)
== END 2023-02-02 12:10 | disposition home or self-care (01) ==
LOC: ATC 03:01
PROVIDERS: Family Medicine
DX: N39.0 Urinary tract infection, site not specified (principal); G04.90 Encephalitis and encephalomyelitis, unspecified; K21.9 Gastro-esophageal reflux disease without esophagitis; G35 Multiple sclerosis; E11.9 Type 2 diabetes mellitus without complications
CPT/HCPCS: 51702; 81001; 87077; 87086; 87186

== ENCOUNTER 2023-03-24 06:54 | Inpatient (IN) | payer BC ==
[~2023-03-24] VITALS: Ht 188 cm; Wt 137.6 kg
[~2023-03-24 06:54] MED LIST changes: +BACL20 PO
[2023-03-24 07:18] LABS: BASOPHILS ABSOLUTE AUTO 0.08 K/mm3 (0.00-0.23); BASOPHILS PERCENT AUTO 0 % (0-2); EOSINOPHILS ABSOLUTE AUTO 0.05 K/mm3 (0.00-0.68); EOSINOPHILS PERCENT AUTO 0 % (0-6); Hematocrit 37.6 % (37.0-53.0); Hemoglobin 12.9 g/dL (13.5-17.5); IMMATURE GRAN ABSOLUTE AUTO 1.15 K/mm3 (0.00-0.10); IMMATURE GRAN PERCENT AUTO 4 % (0-1); LYMPHOCYTES ABSOLUTE AUTO 2.35 K/mm3 (0.84-5.20); LYMPHOCYTES PERCENT AUTO 8 % (21-46); MONOCYTES ABSOLUTE AUTO 1.04 K/mm3 (0.16-1.47); MONOCYTES PERCENT AUTO 4 % (4-13); Mean Corpuscular HGB 30.8 pg (26.0-34.0); Mean Corpuscular HGB Conc 34.3 g/dL (31.5-36.5); Mean Corpuscular Volume 90 fL (80-100); Mean Platelet Volume 10.6 fL (9.1-12.4); NEUTROPHILS ABSOLUTE AUTO 24.52 K/mm3 (1.96-9.15); NEUTROPHILS PERCENT AUTO 84 % (41-73); Platelet Count 142 K/mm3 (150-400); RDW Coefficient Variation 15.1 % (11.7-14.2); RDW Standard Deviation 49.1 fL (35.1-46.3); Red Blood Cell Count 4.19 M/mm3 (4.30-5.90); White Blood Cell Count 29.19 K/mm3 (4.00-11.30)
[2023-03-24 07:41] LABS: Base Excess Venous 0.9 mmol/L; Bicarbonate Venous 24.7 mmol/L (24.0-30.0); PCO2 Venous 48.7 mmHg (38-42); pH Blood Venous 7.35 (7.34-7.37)
[2023-03-24 08:29] LABS: Influenza A, PCR NEGATIVE (NEGATIVE); Influenza B, PCR NEGATIVE (NEGATIVE); Resp Syncytial Virus, PCR NEGATIVE (NEGATIVE); SARS-Cov-2 (COVID-19) PCR, MMC NEGATIVE (NEGATIVE)
[2023-03-24 09:27] LABS: Source, Urine Foley catheter
[2023-03-24 09:30] LABS: Appearance, Urine Cloudy (Clear); Blood, Urine 5+ (Neg); Color, Urine Yellow (P-Yellow); Glucose Qualitative, Urine Neg (Neg); Ketones, Urine Neg (Neg); Leukocyte Esterase, Urine 3+ (Neg); Nitrite, Urine Pos (Neg); Protein, Urine 3+ (Neg); Specific Gravity, Urine 1.015 (1.003-1.022); Urobilinogen, Urine 1+ (Normal)
[2023-03-24 09:38] LABS: Albumin, Blood 3.1 g/dL (3.4-5.0); Albumin/Globulin Ratio 0.8 (0.8-1.8); Bilirubin, Direct 0.5 mg/dL (0.0-0.3); Bilirubin, Indirect 0.7 mg/dL (0.1-0.7); Bilirubin, Total 1.2 mg/dL (0.1-1.0); Bun/Creatinine Ratio 12.7 (12.0-20.0); Calcium, Blood 8.9 mg/dL (8.5-10.1); Creatinine, Blood 4.73 mg/dL (0.60-1.20); Globulin, Blood 3.7 g/dL (2.2-4.0); Potassium, Blood 4.3 mmol/L (3.5-5.5); Total Protein, Blood 6.8 g/dL (6.4-8.2)
[2023-03-24 10:30] LABS: Bilirubin, Urine 1+ (Neg)
[2023-03-24 10:31] LABS: White Blood Cells, Urine TNTC /hpf (0-5)
[2023-03-24 10:32] LABS: Bacteria Few /hpf; Red Blood Cells, Urine 25-50 /hpf (0-2); Squamous Epithelial Cells Few /hpf (Few)
[2023-03-24 12:12] VITALS: BP 134/99
[2023-03-24 13:32] LABS: Bun/Creatinine Ratio 14.6 (12.0-20.0); Calcium, Blood 8.4 mg/dL (8.5-10.1); Creatinine, Blood 3.83 mg/dL (0.60-1.20); Potassium, Blood 4.1 mmol/L (3.5-5.5)
[2023-03-24 14:59] VITALS: BP 121/75
--- NOTE | 2023-03-24 18:02 | NUR ---
SHIFT SUMMARY MENTATION REMAINS UNCHANGED. VS STABLE. PT TITRATED TO 2L NC WITH SATS ABOVE 90%. LR INFUSING PER ORDERS. BARLOW CATHETER IN PLACE WITH CLEAR YELLOW URINE DRAINING. NO BM THIS SHIFT. PT REPOSITIONED Q2H. SPOUSE AT BEDSIDE THIS EVENING AND UPDATED. WILL CONTINUE TO MONITOR AND REPORT TO ONCOMING RN
[2023-03-24 20:20] VITALS: BP 136/87
[2023-03-24 21:00] VITALS: BP 152/98
[2023-03-24 22:00] VITALS: BP 155/96
[2023-03-24 23:00] VITALS: BP 149/97
[2023-03-25] VITALS: BP 164/91
[2023-03-25 04:00] VITALS: BP 175/96
[2023-03-25 04:10] LABS: BASOPHILS ABSOLUTE AUTO 0.05 K/mm3 (0.00-0.23); BASOPHILS PERCENT AUTO 0 % (0-2); EOSINOPHILS ABSOLUTE AUTO 0.12 K/mm3 (0.00-0.68); EOSINOPHILS PERCENT AUTO 1 % (0-6); Hematocrit 37.4 % (37.0-53.0); Hemoglobin 13.1 g/dL (13.5-17.5); IMMATURE GRAN ABSOLUTE AUTO 0.66 K/mm3 (0.00-0.10); IMMATURE GRAN PERCENT AUTO 3 % (0-1); LYMPHOCYTES ABSOLUTE AUTO 1.69 K/mm3 (0.84-5.20); LYMPHOCYTES PERCENT AUTO 9 % (21-46); MONOCYTES ABSOLUTE AUTO 0.74 K/mm3 (0.16-1.47); MONOCYTES PERCENT AUTO 4 % (4-13); Mean Corpuscular HGB 31.2 pg (26.0-34.0); Mean Corpuscular Volume 89 fL (80-100); Mean Platelet Volume 10.6 fL (9.1-12.4); NEUTROPHILS PERCENT AUTO 84 % (41-73); Platelet Count 135 K/mm3 (150-400); RDW Coefficient Variation 14.5 % (11.7-14.2); RDW Standard Deviation 46.7 fL (35.1-46.3); White Blood Cell Count 19.76 K/mm3 (4.00-11.30)
[2023-03-25 04:33] LABS: Alanine Aminotransfer (ALT/SGP 132 U/L (12-78); Albumin/Globulin Ratio 0.7 (0.8-1.8); Alk Phos 209 U/L (50-136); Anion Gap 5 mmol/L (6-16); Aspartate Aminotrans (AST/SGOT 66 U/L (12-37); Bilirubin, Total 0.9 mg/dL (0.1-1.0); Blood Urea Nitrogen 39 mg/dL (8-24); CO2, Blood 28 mmol/L (21-32); Calcium, Blood 9.6 mg/dL (8.5-10.1); Chloride, Blood 110 mmol/L (98-108); Creatinine, Blood 1.95 mg/dL (0.60-1.20); Globulin, Blood 4.1 g/dL (2.2-4.0); Glomerular Filtration Rate 38 (60-); Glucose, Blood 141 mg/dL (70-99); Potassium, Blood 4.2 mmol/L (3.5-5.5); Sodium, Blood 143 mmol/L (136-145); Total Protein, Blood 7.1 g/dL (6.4-8.2); Vancomycin, Random 16.3 ug/mL
--- NOTE | 2023-03-25 06:29 | NUR ---
ASSUMED CARE OF PT AT 1900 03/24/23. NO ACUTE CHANGES. PT HAS HAD LARGE AMOUNT OF URINE OUTPUT TO BARLOW CATHETER. VSS. PT HAS BECOME MORE AWAKE AND CONVERSIVE OVERNIGHT. PT HAS HAD NO COMPLAINTS. POSITIVE BLOOD CULTURES CALLED TO DR MENA. NO ACUTE NEEDS IDENTIFIED AT THIS TIME. WILL CONTINUE TO MONITOR AND GIVE REPORT TO AM RN.
[2023-03-25 08:36] VITALS: BP 171/99
[2023-03-25 11:08] VITALS: BP 166/97
--- NOTE | 2023-03-25 18:14 | NUR ---
SHIFT SUMMARY PT'S MENTATION REMAINS UNCHANGED THROUGHOUT SHIFT. CONFUSION STILL PERSISTS AND WILL ONLY RESPOND WITH YES OR NO. PT FORGETFUL. BP STABLE. HR NSR. O2 SATS REMAIN ABOVE 90% ON 2L NC. LS DIM THROUGHOUT. BARLOW PATENT AND DRAINING CLEAR YELLOW URINE. PT HAD AN EPISODE THIS AM OF NAUSEA AND VOMITTING. DR. NOGUERA CALLED AND PT MEDICATED. NO RECURRENT VOMITTING SINCE PT MEDICATED. PT REPOSITIONED Q2H. REDNESS NOTED TO COCCYX IS BLANCHABLE. NO BM THIS SHIFT. PT'S SPOUSE UPDATED THIS SHIFT. WILL CONTINUE TO MONITOR AND REPORT TO ONCOMING RN
[2023-03-25 20:08] VITALS: BP 167/83
[2023-03-26] VITALS (10 sets, daily range): BP systolic 140–176; BP diastolic 84–108
[2023-03-26 04:35] LABS: BASOPHILS ABSOLUTE AUTO 0.08 K/mm3 (0.00-0.23); BASOPHILS PERCENT AUTO 1 % (0-2); EOSINOPHILS ABSOLUTE AUTO 0.12 K/mm3 (0.00-0.68); EOSINOPHILS PERCENT AUTO 1 % (0-6); Hematocrit 40.3 % (37.0-53.0); Hemoglobin 13.7 g/dL (13.5-17.5); IMMATURE GRAN ABSOLUTE AUTO 0.13 K/mm3 (0.00-0.10); IMMATURE GRAN PERCENT AUTO 1 % (0-1); LYMPHOCYTES ABSOLUTE AUTO 2.66 K/mm3 (0.84-5.20); LYMPHOCYTES PERCENT AUTO 17 % (21-46); MONOCYTES ABSOLUTE AUTO 0.98 K/mm3 (0.16-1.47); MONOCYTES PERCENT AUTO 6 % (4-13); Mean Corpuscular HGB 30.7 pg (26.0-34.0); Mean Corpuscular Volume 90 fL (80-100); Mean Platelet Volume 10.7 fL (9.1-12.4); NEUTROPHILS ABSOLUTE AUTO 12.15 K/mm3 (1.96-9.15); NEUTROPHILS PERCENT AUTO 75 % (41-73); Platelet Count 146 K/mm3 (150-400); RDW Coefficient Variation 14.2 % (11.7-14.2); RDW Standard Deviation 47.6 fL (35.1-46.3); Red Blood Cell Count 4.46 M/mm3 (4.30-5.90); White Blood Cell Count 16.12 K/mm3 (4.00-11.30)
[2023-03-26 04:58] LABS: Albumin, Blood 3.2 g/dL (3.4-5.0); Albumin/Globulin Ratio 0.8 (0.8-1.8); Bilirubin, Total 0.7 mg/dL (0.1-1.0); Bun/Creatinine Ratio 27.9 (12.0-20.0); Calcium, Blood 10.2 mg/dL (8.5-10.1); Creatinine, Blood 1.22 mg/dL (0.60-1.20); Globulin, Blood 4.1 g/dL (2.2-4.0); Potassium, Blood 4.1 mmol/L (3.5-5.5); Total Protein, Blood 7.3 g/dL (6.4-8.2)
--- NOTE | 2023-03-26 07:28 | NUR ---
SHIFT SUMMARY: A&OX1-2, SLOW TO RESPOND IN CONVERSATION, RESPONDS WELL TO YES OR NO YESTIONS. ABLE TO FOLLOW DIRECTIONS BUT RESPONSE DELAYED. DENIES ANY COMPLAINTS OF PAIN. HR SR IN 70'S. BP ELEVATED, RECIEVED ORDERED FOR PRN HYDRALAZINE FOR HTN WITH GOOD RESULT. O2 SATS MAINTAINED ON RA WHILE AWAKE. PLACED ON 2 LPM VIA NC WHILE SLEEPING DUE TO DESATUATION. TURNED Q2H TO PREVENT SKIN BREAKDOWN. CALL LIGHT IN REACH. BED IN LOW POSITION.
--- NOTE | 2023-03-26 17:00 | NUR ---
UPDATE MENTATION CONTINUES TO IMPROVE. PT ANSWERING QUESTIONS APPROPRIATELY AND FOLLOWING COMMANDS. BP STABLE. AFEBRILE. O2 SATS REMAIN ABOVE 90% ON 2L NC. PT DENIES ANY PAIN. TOLERATING PO INTAKE TODAY. BARLOW PATENT AND DRAINING. PT REPOSITIONED Q2H. BED BATH PROVIDED TODAY. PT'S SPOUSE IN THIS AFTERNOON AND UPDATED ON PLAN OF CARE. PT TO BE TRANSFERRED TO MEDICAL FLOOR. REPORT GIVEN TO MEDICAL FLOOR RN.
[2023-03-27 02:48] VITALS: BP 170/86
--- NOTE | 2023-03-27 04:29 | NUR ---
SHIFT SUMMARY; NO ACUTE CHANGES OVERNIGHT. THE PT HAS BEEN AWAKE THE MAJORITY OF THE NIGHT. THE PT IS AXO X3, SLOW TO RESPOND. THE PT HAS A BARLOW IN PLACE, IT IS PATENT AND DRAINING TO GRAVITY. THE PT HAS DENIED ANY SOB, CHEST PAIN/PRESSURE, N/V OR PAIN. CURRENTLY THE PT IS LAYING IN BED WITH THE BED IN THE LOWEST POSITION AND THE CALL LIGHT AT BEDSIDE. FIRE SAFETY ROUNDS COMPLETED.
[2023-03-27 05:49] VITALS: BP 154/79
[2023-03-27 06:01] LABS: BASOPHILS ABSOLUTE AUTO 0.05 K/mm3 (0.00-0.23); BASOPHILS PERCENT AUTO 0 % (0-2); EOSINOPHILS ABSOLUTE AUTO 0.16 K/mm3 (0.00-0.68); EOSINOPHILS PERCENT AUTO 1 % (0-6); Hemoglobin 12.9 g/dL (13.5-17.5); IMMATURE GRAN ABSOLUTE AUTO 0.34 K/mm3 (0.00-0.10); IMMATURE GRAN PERCENT AUTO 3 % (0-1); LYMPHOCYTES ABSOLUTE AUTO 2.98 K/mm3 (0.84-5.20); LYMPHOCYTES PERCENT AUTO 23 % (21-46); MONOCYTES ABSOLUTE AUTO 0.73 K/mm3 (0.16-1.47); MONOCYTES PERCENT AUTO 6 % (4-13); Mean Corpuscular HGB 30.6 pg (26.0-34.0); Mean Corpuscular HGB Conc 34.9 g/dL (31.5-36.5); Mean Corpuscular Volume 88 fL (80-100); Mean Platelet Volume 10.5 fL (9.1-12.4); NEUTROPHILS ABSOLUTE AUTO 8.54 K/mm3 (1.96-9.15); NEUTROPHILS PERCENT AUTO 67 % (41-73); Platelet Count 174 K/mm3 (150-400); RDW Coefficient Variation 13.8 % (11.7-14.2); Red Blood Cell Count 4.22 M/mm3 (4.30-5.90)
[2023-03-27 06:31] LABS: Albumin/Globulin Ratio 0.8 (0.8-1.8); Bilirubin, Total 0.6 mg/dL (0.1-1.0); Bun/Creatinine Ratio 31.2 (12.0-20.0); Calcium, Blood 9.7 mg/dL (8.5-10.1); Creatinine, Blood 0.99 mg/dL (0.60-1.20); Potassium, Blood 3.4 mmol/L (3.5-5.5)
[2023-03-27 07:36] VITALS: BP 150/89
[2023-03-27 15:31] VITALS: BP 141/81
--- NOTE | 2023-03-27 18:14 | NUR ---
SHIFT SIMMARY: PT A&O X4. PLEASANT AND COOPERATIVE WITH CARE. CONTACT PRECAUTIONS FOR ESBL IN URINE. NO ACUTE CHANGES THIS SHIFT. PICC LINE ORDERED FOR OUTPT ABX. PT WORKED WITH PT/OT THIS SHIFT. PT WANTING PT UP WITH SIT TO STAND PT HAS ONE AT HOME. REMAINS ON 2L SATS >92%. IV IN LAC REMOVED D/T LEAKING. CALL LIGHT IN REACH. BED IN LOWEST POSITION.
[2023-03-27 20:10] VITALS: BP 155/72
--- NOTE | 2023-03-28 05:37 | NUR ---
SHIFT SUMMARY PATIENT A/Ox3, DENIES PAIN/DISCOMFORT. BARLOW CATHETER IN PLACE, DRAINING TO GRAVITY, CLEAR IAN URINE. REQUIRES 1 TO 2 MAX ASSIST FOR CARES. NO ACUTE CHANGES NOTED OVERNIGHT. BED LOCKED, CALL LIGHT WITHIN REACH.
[2023-03-28 05:51] VITALS: BP 159/104
[2023-03-28 07:13] LABS: Albumin, Blood 3.2 g/dL (3.4-5.0); Albumin/Globulin Ratio 0.9 (0.8-1.8); Bilirubin, Total 0.5 mg/dL (0.1-1.0); Bun/Creatinine Ratio 32.4 (12.0-20.0); Calcium, Blood 9.7 mg/dL (8.5-10.1); Creatinine, Blood 0.8 mg/dL (0.60-1.20); Globulin, Blood 3.7 g/dL (2.2-4.0); Potassium, Blood 3.6 mmol/L (3.5-5.5); Total Protein, Blood 6.9 g/dL (6.4-8.2)
[2023-03-28 07:14] LABS: BASOPHILS ABSOLUTE AUTO 0.06 K/mm3 (0.00-0.23); BASOPHILS PERCENT AUTO 1 % (0-2); EOSINOPHILS ABSOLUTE AUTO 0.13 K/mm3 (0.00-0.68); EOSINOPHILS PERCENT AUTO 1 % (0-6); Hematocrit 37.7 % (37.0-53.0); Hemoglobin 13.1 g/dL (13.5-17.5); IMMATURE GRAN ABSOLUTE AUTO 0.45 K/mm3 (0.00-0.10); IMMATURE GRAN PERCENT AUTO 4 % (0-1); LYMPHOCYTES ABSOLUTE AUTO 2.76 K/mm3 (0.84-5.20); LYMPHOCYTES PERCENT AUTO 27 % (21-46); MONOCYTES PERCENT AUTO 7 % (4-13); Mean Corpuscular HGB 30.5 pg (26.0-34.0); Mean Corpuscular HGB Conc 34.7 g/dL (31.5-36.5); Mean Corpuscular Volume 88 fL (80-100); Mean Platelet Volume 10.5 fL (9.1-12.4); NEUTROPHILS ABSOLUTE AUTO 6.27 K/mm3 (1.96-9.15); NEUTROPHILS PERCENT AUTO 60 % (41-73); Platelet Count 222 K/mm3 (150-400); RDW Coefficient Variation 13.5 % (11.7-14.2); RDW Standard Deviation 43.3 fL (35.1-46.3); White Blood Cell Count 10.37 K/mm3 (4.00-11.30)
[2023-03-28 07:33] VITALS: BP 149/80
--- NOTE | 2023-03-28 13:46 | NUR ---
RN NOTE MR COLLINS IS STILL HAVING SOME CONFUSION AND HALLUCINATIONS. HE SAW A BIRD COME INTO HIS ROOM THROUGH A HOLE IN THE WALL THIS MORNING AND HAS BEEN SEEING BUGS AROUND HIM. HE SAID HE WAS AT [employer]. HE IS SITTING UP IN A RECLINER AFTER FULL LIFT, DENIES PAIN. OXYGEN SAT 97% ON ROOM AIR. POWER GLIDE WAS PLACED THIS AM. PLAN FOR IV ABX AT 1600HRS THEN PROBABLE DISCHARGE HOME. HIS IS EXPECTING ABX DELIVERY TO HER HOME TOMORROW.
[2023-03-28] MEDS ORDERED: ERTAPENEM1 G6 IV (15:03)
[2023-03-28 15:32] VITALS: BP 147/97
--- NOTE | 2023-03-28 16:03 | NUR ---
SHIFT SUMMARY MR COLLINS IS CONFUSED AND HAS BEEN HALLUCINATING, DISORIENTATED TO PLACE, DATE AND SITUATION. TRACY FELIPE PLACED THIS AM FOR DISCHARGE HOME ON IV ABX BUT UNFORTUNATELY THE IV ABX WILL NOT BE ABLE TO BE DELIVERED BEFORE NEXT DOSE DUE 03/29 AT 1600HRS. FLASHER ADJUSTER SPOKE WITH DR AMBROSIO AND DISCHARGE HAS BEEN DELAYED. HE SAT UP IN THE CHAIR FOR A FEW HOURS AND IS BACK IN BED NOW. REPOSITIONING TO PROTECT HIS SKIN. REDNESS NOTED TO COCCYX, RIGHT HIP AND RIGHT LEG. AT BEDSIDE. BED LOW, CALL LIGHT IN REACH.
[2023-03-28 20:04] VITALS: BP 146/94
--- NOTE | 2023-03-29 04:12 | NUR ---
SHIFT SUMMARY PATIENT A/Ox3, DENIES PAIN/DISCOMFORT. CONTINUES WITH INTERMITTENT CONFUSION, SEEING THINGS, THOUGH WITH LESS FREQUENCY AND DOES APPEAR TO BE MORE ALERT AND ARTICULATE, QUICKER TO RESPOND TO QUESTIONS. HAS BEEN CALM AND COOPERATIVE THROUGHOUT SHIFT IN NO ACUTE DISTRESS. CALLING APPROPRIATELY USING CALL LIGHT. BARLOW CATHETER IN PLACE, DRAINING TO GRAVITY, CLEAR IAN URINE. REQUIRES 1 TO 2 MAX ASSIST FOR CARES. NO ACUTE CHANGES NOTED OVERNIGHT. BED LOCKED, CALL LIGHT WITHIN REACH.
[2023-03-29 04:26] VITALS: BP 152/95
[2023-03-29 05:21] LABS: Hematocrit 37.3 % (37.0-53.0); Hemoglobin 13.2 g/dL (13.5-17.5); Mean Corpuscular HGB 30.6 pg (26.0-34.0); Mean Corpuscular HGB Conc 35.4 g/dL (31.5-36.5); Mean Corpuscular Volume 86 fL (80-100); Mean Platelet Volume 9.8 fL (9.1-12.4); Platelet Count 249 K/mm3 (150-400); RDW Coefficient Variation 13.3 % (11.7-14.2); RDW Standard Deviation 41.7 fL (35.1-46.3); Red Blood Cell Count 4.32 M/mm3 (4.30-5.90); White Blood Cell Count 9.56 K/mm3 (4.00-11.30)
[2023-03-29 05:52] LABS: BASOPHILS PERCENT MAN 0 % (0-2); EOSINOPHILS ABSOLUTE MAN 0.28 K/mm3 (0.00-0.68); EOSINOPHILS PERCENT MAN 3 % (0-6); LYMPHOCYTES % ATYPICAL MANUAL 1 % (0-0); LYMPHOCYTES ABSOLUTE MAN 3.53 K/mm3 (0.84-5.20); LYMPHOCYTES PERCENT MAN 36 % (21-46); MONOCYTES ABSOLUTE MAN 0.76 K/mm3 (0.16-1.47); MONOCYTES PERCENT MAN 8 % (4-13); MYELOCYTE ABSOLUTE MAN 0.09 K/mm3 (0.00-0.00); MYELOCYTE PERCENT MAN 1 % (0-0); NEUTROPHILS ABSOLUTE MAN 4.87 K/mm3 (1.96-9.15); SEG NEUTROPHILS PERCENT MAN 51 % (41-73); TOTAL CELLS COUNTED 100
[2023-03-29 06:16] LABS: Albumin, Blood 3.3 g/dL (3.4-5.0); Albumin/Globulin Ratio 0.9 (0.8-1.8); Bilirubin, Total 0.5 mg/dL (0.1-1.0); Calcium, Blood 9.5 mg/dL (8.5-10.1); Creatinine, Blood 0.84 mg/dL (0.60-1.20); Globulin, Blood 3.8 g/dL (2.2-4.0); Potassium, Blood 3.6 mmol/L (3.5-5.5); Total Protein, Blood 7.1 g/dL (6.4-8.2)
[2023-03-29 13:52] VITALS: BP 127/82
--- NOTE | 2023-03-29 18:34 | NUR ---
SHIFT SUMMARY AND DISCHARGE PATIENT DISCHARGE TO HOME. INSISTED ON PATIENT TRANSFERING TO WHEELCHAIR WITH ASSISTANCE. PATIENT HAD DIFFICULTY TRANSFERING TO WHEELCHAIR NEEDING MULTIPLE REPOSITIONING TO SAFELY BE SEATED IN CHAIR. PATIENT CONTINUES TO BE CONFUSED AND HAVING WORD SALAD THROUGHOUT THE DAY. PATIENT AGITATED AT START OF SHIFT, CALLING FREQUENTLY TELLING HER HE WAS INCONTINENT AND LEFT SITTING IN IT. REASSURED THAT HE WAS NOT INCONTINENT. PATIENT HAS CHRONIC BARLOW. PATIENT ATTEMPTING TO CLIMB OUT OF BED AT START OF SHIFT BUT MUCH CALMER IN THE PRESENCE OF BUT STILL HAVING WORD SALAD AND CONFUSION. IV ANTIBIOTIC INFUSED. DISCHARGE INSTRUCTIONS REVIEWED WITH . PATIENT TO HAVE ANTIBIOTICS GIVEN BY AT HOME. HOME HEALTH TO ASSIST. RELUCTANT TO HAVE HOME HEALTH AFTER DISCHARGE. ASSISTED PATIENT TO HAVE LARGE BM WHICH HELPED DECREASE RESTLESSNESS. PATIENT MOBILIZED SELF OUT OF THE HOSPITAL USING PERSONAL ELECTRIC WHEELCHAIR. BELONGINGS SENT HOME WITH PATIENT. ROOM CHECKED BEFORE DEPARTURE. POWERGLIDE LEFT IN PLACE FOR HOME INFUSION. R AC IV DC'D PRIOR TO DISCHARGE. PATIENT NOTED TO HAVE SOME EXCORIATION UNDER PANIS. STATES THAT SHE HAS NYSTATIN AT HOME AND WILL USE THAT TO AREAS. REMINDED THAT HE IS GETTING ANTIBIOTICS PUTTING HIM AT RISK FOR YEAST INFECTIONS.
== END 2023-03-29 15:55 | disposition home or self-care (01) | DRG 698 ==
LOC: ER 06:54 → MEDS 10:55 → PCU 10:55 → ER 12:15 → PCU 12:30 → MEDS 03-26 17:37 → ENPENDDIS 03-28 17:02 → MEDS 03-29 15:55
PROVIDERS: Emergency Medicine; Family Medicine; ADMIT Hospitalist
PROC: 0T9B70Z Drainage of Bladder with Drainage Device, Via Natural or Artificial Opening (ICD-10-PCS; principal; 2023-03-24)
PROC: 3E03329 Introduction of Other Anti-infective into Peripheral Vein, Percutaneous Approach (ICD-10-PCS; 2023-03-24)
DX: T83.518A Infection and inflammatory reaction due to other urinary catheter, initial encounter (principal); A41.51 Sepsis due to Escherichia coli [E. coli]; G92.8 Other toxic encephalopathy; R65.20 Severe sepsis without septic shock; N39.0 Urinary tract infection, site not specified; E87.20 Acidosis, unspecified; N17.9 Acute kidney failure, unspecified; F05 Delirium due to known physiological condition; R74.01 Elevation of levels of liver transaminase levels; G35 Multiple sclerosis; E11.9 Type 2 diabetes mellitus without complications; D69.6 Thrombocytopenia, unspecified; R94.5 Abnormal results of liver function studies; D64.9 Anemia, unspecified; I10 Essential (primary) hypertension; N31.9 Neuromuscular dysfunction of bladder, unspecified; H40.10X0 Unspecified open-angle glaucoma, stage unspecified; N40.0 Benign prostatic hyperplasia without lower urinary tract symptoms; Y84.6 Urinary catheterization as the cause of abnormal reaction of the patient, or of later complication, without mention of misadventure at the time of the procedure; Z98.52 Vasectomy status; Z98.890 Other specified postprocedural states; Z79.899 Other long term (current) drug therapy; Z79.82 Long term (current) use of aspirin; Z79.4 Long term (current) use of insulin
CPT/HCPCS: 0241U; 36415; 51702; 71045; 76705; 80048; 80053; 80202; 81001; 82248; 82803; 82947; 83605; 83735; 84145; 85025; 87040; 87077; 87086; 87186; 93005; 93010; 94760; 96361-59; 96365-59; 96366-59; 96367-59; 97110; 97112; 97161; 97165; 97530; 99285-25; A9270; C1751; J0360; J1335; J1644; J1815; J2185; J3370; J3480; J7030; J7050; J7120

== ENCOUNTER → 2023-04-12 | Outpatient (CLI) | payer BC ==
[~2023-04-12] MED LIST changes: +ERTAPENEM1 G6 IV
[2023-04-12 17:23] LABS: Source, Urine Straight Cath
[2023-04-12 18:51] LABS: Appearance, Urine Cloudy (Clear); Bilirubin, Urine Neg (Neg); Blood, Urine 4+ (Neg); Color, Urine Yellow (P-Yellow); Glucose Qualitative, Urine Neg (Neg); Ketones, Urine Neg (Neg); Leukocyte Esterase, Urine 3+ (Neg); Nitrite, Urine Pos (Neg); Protein, Urine 3+ (Neg); Urobilinogen, Urine NORM (Normal)
[2023-04-12 19:17] LABS: Calcium Oxalate Crystals Mod /hpf; White Blood Cells, Urine TNTC /hpf (0-5)
[2023-04-12 19:18] LABS: Bacteria Many /hpf; Squamous Epithelial Cells Few /hpf (Few)
== END ==
LOC: LAB 16:25 → LAB SHORT 16:25
PROVIDERS: Family Medicine
DX: R33.8 Other retention of urine (principal); R94.5 Abnormal results of liver function studies; Z86.19 Personal history of other infectious and parasitic diseases
CPT/HCPCS: 81001; 87077; 87086; 87186

== ENCOUNTER → 2023-06-04 | Outpatient (CLI) | payer SELFPAY | END | disposition home or self-care (01) | LOC: LAB SHORT 11:30 → LAB 11:30 | DX: R34 Anuria and oliguria (principal) | CPT/HCPCS: 87077; 87086; 87186 ==

== ENCOUNTER → 2023-06-27 | Outpatient (CLI) | payer BC | LOC: LAB 12:53 → LAB SHORT 12:53 | DX: N39.0 Urinary tract infection, site not specified (principal) | CPT/HCPCS: 87077; 87086; 87186 ==

== ENCOUNTER 2023-11-28 02:13 | Day surgery (SDC) | payer MEDICARE, BC ==
[2023-11-28] MEDS ORDERED: Lidocaine HCl 4% Cream 5 GM ONE (15:08)
== END 2023-11-29 22:48 | disposition home or self-care (01) ==
LOC: WOUND 02:13
DX: L89.513 Pressure ulcer of right ankle, stage 3 (principal); I10 Essential (primary) hypertension; G47.30 Sleep apnea, unspecified; E11.621 Type 2 diabetes mellitus with foot ulcer; E11.51 Type 2 diabetes mellitus with diabetic peripheral angiopathy without gangrene; I87.2 Venous insufficiency (chronic) (peripheral)
CPT/HCPCS: A6213; A9270; G0463

== ENCOUNTER 2023-12-05 01:40 | Day surgery (SDC) | payer MEDICARE, BC | END 2023-12-06 05:25 | disposition home or self-care (01) | LOC: WOUND 01:40 | DX: E11.622 Type 2 diabetes mellitus with other skin ulcer (principal); L89.511 Pressure ulcer of right ankle, stage 1; E11.51 Type 2 diabetes mellitus with diabetic peripheral angiopathy without gangrene; I87.2 Venous insufficiency (chronic) (peripheral); I10 Essential (primary) hypertension | CPT/HCPCS: A6213 ==

== ENCOUNTER 2023-12-12 04:01 | Day surgery (SDC) | payer MEDICARE, BC ==
[2023-12-12] MEDS ORDERED: Lidocaine HCl 4% Cream 5 GM ONE (15:21)
[2023-12-12] MEDS ORDERED: Silver Nitr/Potassium Nitrate 1 EA APPL ONE (15:31)
== END 2023-12-12 23:03 | disposition home or self-care (01) ==
LOC: WOUND 04:01
DX: E11.622 Type 2 diabetes mellitus with other skin ulcer (principal); L97.312 Non-pressure chronic ulcer of right ankle with fat layer exposed; E11.621 Type 2 diabetes mellitus with foot ulcer; E11.51 Type 2 diabetes mellitus with diabetic peripheral angiopathy without gangrene; L89.516 Pressure-induced deep tissue damage of right ankle; I10 Essential (primary) hypertension; I87.2 Venous insufficiency (chronic) (peripheral)
CPT/HCPCS: A6213; A9270

== ENCOUNTER 2024-01-02 05:43 | Day surgery (SDC) | payer MEDICARE, BC ==
[2024-01-02] MEDS ORDERED: Lidocaine HCl 4% Cream 5 GM ONE (14:38)
== END 2024-01-02 23:15 | disposition home or self-care (01) ==
LOC: WOUND 05:43
DX: E11.622 Type 2 diabetes mellitus with other skin ulcer (principal); L97.312 Non-pressure chronic ulcer of right ankle with fat layer exposed; E11.621 Type 2 diabetes mellitus with foot ulcer; I87.2 Venous insufficiency (chronic) (peripheral); E11.51 Type 2 diabetes mellitus with diabetic peripheral angiopathy without gangrene; I10 Essential (primary) hypertension
CPT/HCPCS: 87071; 87075; 87077; 87186; 87205; A6213; A9270

== ENCOUNTER 2024-01-09 00:32 | Day surgery (SDC) | payer MEDICARE, BC | END 2024-01-09 23:18 | disposition home or self-care (01) | LOC: WOUND 00:32 | DX: E11.621 Type 2 diabetes mellitus with foot ulcer (principal); E11.51 Type 2 diabetes mellitus with diabetic peripheral angiopathy without gangrene; I87.2 Venous insufficiency (chronic) (peripheral); L89.516 Pressure-induced deep tissue damage of right ankle | CPT/HCPCS: A6213; G0463 ==

== ENCOUNTER 2024-01-16 04:24 | Day surgery (SDC) | payer MEDICARE, BC | END 2024-01-16 22:51 | disposition home or self-care (01) | LOC: WOUND 04:24 | DX: L89.511 Pressure ulcer of right ankle, stage 1 (principal); E11.621 Type 2 diabetes mellitus with foot ulcer; I87.2 Venous insufficiency (chronic) (peripheral); E11.51 Type 2 diabetes mellitus with diabetic peripheral angiopathy without gangrene; I10 Essential (primary) hypertension | CPT/HCPCS: A6213; G0463 ==

== ENCOUNTER 2024-02-13 02:26 | Day surgery (SDC) | payer MEDICARE, BC | END 2024-02-13 23:23 | disposition home or self-care (01) | LOC: WOUND 02:26 | DX: E11.622 Type 2 diabetes mellitus with other skin ulcer (principal); L97.313 Non-pressure chronic ulcer of right ankle with necrosis of muscle; I87.2 Venous insufficiency (chronic) (peripheral); L89.516 Pressure-induced deep tissue damage of right ankle; E11.51 Type 2 diabetes mellitus with diabetic peripheral angiopathy without gangrene; I10 Essential (primary) hypertension | CPT/HCPCS: A6196; G0463 ==

== ENCOUNTER 2024-02-20 04:35 | Day surgery (SDC) | payer MEDICARE, BC ==
[2024-02-21] MEDS ORDERED: Pentoxifylline400 MG PO (01:11)
[2024-02-21] MEDS ORDERED: XARELTO20 MG PO (16:02)
[2024-02-21] MEDS ORDERED: TIMO.25OPS BOTHEYES (16:02)
[2024-02-21] MEDS ORDERED: ZANAFLEX413 (16:02)
[2024-02-23] MEDS ORDERED: CARV6.25 PO (10:50)
[2024-02-23] MEDS ORDERED: VISBIOME 112.51 EACH PO (10:50)
[2024-02-23] MEDS ORDERED: AMOCLA875 PO (10:51)
== END 2024-02-20 23:00 | disposition home or self-care (01) ==
LOC: WOUND 04:35
DX: E11.621 Type 2 diabetes mellitus with foot ulcer (principal); L97.509 Non-pressure chronic ulcer of other part of unspecified foot with unspecified severity; I10 Essential (primary) hypertension; E11.51 Type 2 diabetes mellitus with diabetic peripheral angiopathy without gangrene; I87.2 Venous insufficiency (chronic) (peripheral)
CPT/HCPCS: G0463

== ENCOUNTER 2024-02-20 14:21 | Inpatient (IN) | payer MEDICARE, BC ==
[~2024-02-20] VITALS: Ht 185.4 cm; Wt 127.0 kg
[2024-02-20 15:05] LABS: BASOPHILS ABSOLUTE AUTO 0.07 K/mm3 (0.00-0.23); BASOPHILS PERCENT AUTO 0 % (0-2); EOSINOPHILS ABSOLUTE AUTO 0.23 K/mm3 (0.00-0.68); EOSINOPHILS PERCENT AUTO 1 % (0-6); Hematocrit 43.9 % (37.0-53.0); Hemoglobin 15.4 g/dL (13.5-17.5); IMMATURE GRAN ABSOLUTE AUTO 0.07 K/mm3 (0.00-0.10); IMMATURE GRAN PERCENT AUTO 0 % (0-1); LYMPHOCYTES ABSOLUTE AUTO 2.86 K/mm3 (0.84-5.20); LYMPHOCYTES PERCENT AUTO 18 % (21-46); MONOCYTES ABSOLUTE AUTO 0.65 K/mm3 (0.16-1.47); MONOCYTES PERCENT AUTO 4 % (4-13); Mean Corpuscular HGB 30.7 pg (26.0-34.0); Mean Corpuscular HGB Conc 35.1 g/dL (31.5-36.5); Mean Corpuscular Volume 88 fL (80-100); Mean Platelet Volume 9.1 fL (9.1-12.4); NEUTROPHILS ABSOLUTE AUTO 12.24 K/mm3 (1.96-9.15); NEUTROPHILS PERCENT AUTO 76 % (41-73); Platelet Count 356 K/mm3 (150-400); RDW Standard Deviation 44.3 fL (35.1-46.3); Red Blood Cell Count 5.02 M/mm3 (4.30-5.90); White Blood Cell Count 16.12 K/mm3 (4.00-11.30)
[2024-02-20 15:33] LABS: Albumin, Blood 3.9 g/dL (3.4-5.0); Albumin/Globulin Ratio 0.9 (0.8-1.8); Bilirubin, Total 0.6 mg/dL (0.1-1.0); Bun/Creatinine Ratio 17.7 (12.0-20.0); Calcium, Blood 10.1 mg/dL (8.5-10.1); Creatinine, Blood 0.79 mg/dL (0.60-1.20); Globulin, Blood 4.2 g/dL (2.2-4.0); Magnesium, Blood 2.1 mg/dL (1.6-2.4); Potassium, Blood 3.7 mmol/L (3.5-5.5); Total Protein, Blood 8.1 g/dL (6.4-8.2)
[2024-02-20] MEDS ORDERED: NS 1,000 ML IV SCH (19:55)
[2024-02-20 20:55] LABS: Source, Urine Clean Catch
[2024-02-20 21:02] LABS: Appearance, Urine Hazy (Clear); Bilirubin, Urine Neg (Neg); Blood, Urine 4+ (Neg); Color, Urine Yellow (P-Yellow); Glucose Qualitative, Urine Neg (Neg); Ketones, Urine Neg (Neg); Leukocyte Esterase, Urine 3+ (Neg); Nitrite, Urine Neg (Neg); Protein, Urine 3+ (Neg); Urobilinogen, Urine NORM (Normal); pH, Urine 6.5 (5.0-8.0)
[2024-02-20 21:15] LABS: Bacteria Many /hpf; Calcium Oxalate Crystals Mod /hpf; Squamous Epithelial Cells Rare /hpf (Few); White Blood Cells, Urine 50-100 /hpf (0-5)
[2024-02-20] MEDS ORDERED: Meropenem 1,000 MG in NS 100 ML IV ONE (22:40)
[2024-02-20] MEDS ORDERED: FLU VACC TS2024-25(6MOS UP)/PF 45 MCG/0.5 ML SYRINGE IM SCH (23:55)
[2024-02-20] MEDS ORDERED: Ondansetron HCl 2 MG / ML 2ML Vial IV PRN (23:55)
[2024-02-20] MEDS ORDERED: Acetaminophen 325 MG TABLET PO PRN (23:55)
[2024-02-21] MEDS ORDERED: Lactated Ringer's 1,000 ML IV SCH (00:40)
[2024-02-21] MEDS ORDERED: Pentoxifylline400 MG PO ×2 (01:11)
[2024-02-21 02:13] VITALS: BP 157/125
[2024-02-21 05:18] LABS: BASOPHILS ABSOLUTE AUTO 0.04 K/mm3 (0.00-0.23); BASOPHILS PERCENT AUTO 0 % (0-2); EOSINOPHILS ABSOLUTE AUTO 0.11 K/mm3 (0.00-0.68); EOSINOPHILS PERCENT AUTO 1 % (0-6); Hematocrit 39.8 % (37.0-53.0); Hemoglobin 13.7 g/dL (13.5-17.5); IMMATURE GRAN ABSOLUTE AUTO 0.07 K/mm3 (0.00-0.10); IMMATURE GRAN PERCENT AUTO 1 % (0-1); LYMPHOCYTES ABSOLUTE AUTO 2.36 K/mm3 (0.84-5.20); LYMPHOCYTES PERCENT AUTO 18 % (21-46); MONOCYTES ABSOLUTE AUTO 0.69 K/mm3 (0.16-1.47); MONOCYTES PERCENT AUTO 5 % (4-13); Mean Corpuscular HGB 30.5 pg (26.0-34.0); Mean Corpuscular HGB Conc 34.4 g/dL (31.5-36.5); Mean Corpuscular Volume 89 fL (80-100); Mean Platelet Volume 9.1 fL (9.1-12.4); NEUTROPHILS ABSOLUTE AUTO 9.99 K/mm3 (1.96-9.15); NEUTROPHILS PERCENT AUTO 75 % (41-73); Platelet Count 299 K/mm3 (150-400); RDW Coefficient Variation 14.4 % (11.7-14.2); RDW Standard Deviation 45.8 fL (35.1-46.3); Red Blood Cell Count 4.49 M/mm3 (4.30-5.90); White Blood Cell Count 13.26 K/mm3 (4.00-11.30)
[2024-02-21 06:03] LABS: Albumin, Blood 3.6 g/dL (3.4-5.0); Albumin/Globulin Ratio 0.9 (0.8-1.8); Bilirubin, Total 0.6 mg/dL (0.1-1.0); Bun/Creatinine Ratio 20.9 (12.0-20.0); Calcium, Blood 10.1 mg/dL (8.5-10.1); Creatinine, Blood 0.77 mg/dL (0.60-1.20); Total Protein, Blood 7.6 g/dL (6.4-8.2)
--- NOTE | 2024-02-21 06:07 | NUR ---
SHIFT SUMMARY: PT IS ALERT AND ORIENTED. PT IS CALM AND COOPERATIVE [facility] CARE. PT CALLS APPROPRIATELY. PT REQUIRES A LIFT FOR TRANSFERS, NOT OUT OF BED OVERNIGHT. PT DENIES PAIN, NAUSEA, VOMITING, AND SOB. PT SLEPT MOST OF THE MORNING POST ADMISSION. NO ACUTE CHANGES OR COMPLICATIONS. WILL REPORT TO DAY NURSE.
[2024-02-21 07:31] VITALS: BP 172/92
[2024-02-21] MEDS ORDERED: Meropenem 1,000 MG in NS 100 ML IV SCH (08:00)
[2024-02-21] MEDS ORDERED: Pentoxifylline 400 MG TabCR PO SCH (08:30)
[2024-02-21] MEDS ORDERED: Insulin Glargine-Yfgn 100 Unit/mL 3 ML SYR SC SCH (09:00)
[2024-02-21] MEDS ORDERED: Cholecalciferol 1000 Unit Tablet (=25MCG) PO SCH (09:00)
[2024-02-21] MEDS ORDERED: Aspirin 81 MG TabEC PO SCH (09:00)
[2024-02-21] MEDS ORDERED: Baclofen 10 MG Tab PO SCH (09:00)
[2024-02-21] MEDS ORDERED: Tamsulosin HCl 0.4 MG Cap PO SCH (09:00)
[2024-02-21] MEDS ORDERED: DULoxetine HCL 60 MG Capsule DR PO SCH (09:00)
[2024-02-21] MEDS ORDERED: Losartan/HCTZ 50-12.5 TAB PO SCH (09:00)
[2024-02-21] MEDS ORDERED: Gabapentin 300 MG Cap PO SCH (09:00)
[2024-02-21] MEDS ORDERED: Enoxaparin 40 MG/0.4 ML SYR SC SCH (09:00)
[2024-02-21] MEDS ORDERED: Meloxicam 7.5 MG Tab PO SCH (09:00)
[2024-02-21] MEDS ORDERED: Lactobacil 2-S.Thermo-Bifido 1 1 Cap PO SCH (09:00)
[2024-02-21 14:39] VITALS: BP 160/97
[2024-02-21] MEDS ORDERED: TIMO.25OPS BOTHEYES ×2 (16:02)
[2024-02-21] MEDS ORDERED: ZANAFLEX413 ×2 (16:02)
[2024-02-21] MEDS ORDERED: XARELTO20 MG PO ×2 (16:02)
[2024-02-21] MEDS ORDERED: LEVOCETIRIZINE D5 MG PO (16:03)
--- NOTE | 2024-02-21 16:28 | NUR ---
LEFT MESSAGE WITH WOUND CARE CLINIC TO PROVIDE WITH COPY OF CURRENT WOUND CARE ORDERS FOR RIGHT HEEL. PATIENT HAS REQUESTED THIS NOT BE REMOVED UNTIL WOUND CARE ORDERS RECEIVED FROM WOUND CARE CLINIC, FOR REPLACEMENT.
[2024-02-21] MEDS ORDERED: Insulin Regular 100 UNIT/ML 10ML Vial SC SCH (16:30)
[2024-02-21] MEDS ORDERED: Rivaroxaban 10 MG Tab PO SCH (17:00)
[2024-02-21] MEDS ORDERED: Omeprazole 20 MG CapCR PO SCH (18:00)
--- NOTE | 2024-02-21 18:10 | NUR ---
END OF SHIFT SUMMARY: A&Ox4. PLEASANT AND COOPERATIVE WITH CARE. CALLS APPROPRIATELY AND IS ABLE TO ADVOCATE NEEDS EFFECTIVELY. CHAIRFAST SECONDARY TO MULTIPLE SCLEROSIS DIAGNOSIS. BEDPAN FOR BOWEL MOVEMENTS, SUPRAPUBIC CATHETER FOR VOIDING. APPROPRIATE INPUT AND OUTPUT: EATING MEALS, LAST BM YESTERDAY. NO C/O PAIN OR DISCOMFORT TODAY. TAKES MEDS WHOLE WITH FLUIDS. TELE NSR IN 60s. LABS AND VS STABLE; BP ELEVATED, BUT IMPROVING WITH RESUMPTION OF CARDIAC MEDS MISSED YESTERDAY. 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 WOUND CARE ORDERS FOR WOUND ON RIGHT FOOT RECEIVED FROM WOUND CARE CLINIC. ORDERS TO CHANGE TIW; LAST CHANGED SUNDAY AND WILL BE CHANGED TOMORROW. REFUSED TWO FIRST TRENTAL DOSES, STATING HE NEVER STARTED IT AT HOME AND IS AFRAID OF HAVING AN ADVERSE EFFECT TO IT. HIS CONFIRMED HE IS, INFACT, TAKING THIS, AND MEDICATION WAS RESUMED THIS AFTERNOON. BED IN LOWEST POSITION. CALL LIGHT WITHIN REACH. ALL NEEDS MET. REPORT TO ONCOMING NURSE.
[2024-02-21 19:17] VITALS: BP 171/93
[2024-02-21 19:19] VITALS: BP 151/93
[2024-02-21] MEDS ORDERED: Latanoprost 0.005% Opth Soln 2.5 ML RIGHTEYE SCH (21:00)
[2024-02-22 03:08] VITALS: BP 172/103
--- NOTE | 2024-02-22 05:33 | NUR ---
SHIFT SUMMARY PATIENT IS ALERT AND ORIENTED. PATIENT IS PLEASANT AND COOPERATIVE WITH CARE. PATIENT HAS HAD NO ACUTE EVENTS THIS SHIFT. VITAL SIGNS REVIEWED. PATIENT HAS HAD PAIN THIS SHIFT, MEDICATED PER EMAR. PATIENT HAS HAD NO COMPLAINTS OF NAUSEA, SOB OR VOMITTING THIS SHIFT. BP STILL ELEVATED. BED IN LOCKED AND LOWEST POSITION. CALL LIGHT IN PLACE. ABX INFUSED ORDERED.
[2024-02-22 07:37] VITALS: BP 161/90
[2024-02-22] MEDS ORDERED: CefTRIAXone Sodium 1,000 MG in NS 100 ML IV SCH (12:00)
[2024-02-22 15:23] VITALS: BP 171/94
[2024-02-22] MEDS ORDERED: NS 250 ML IV PRN (15:40)
--- NOTE | 2024-02-22 16:26 | NUR ---
SHIFT SUMMARY: PATIENT A/OX4, PLEASANT AND COOPERATIVE c CARE. PATIENT DENIES CP/PRESSURE, SOB, N/V AND DIZZINESS. PATIENT ON TELE, SR HR IN THE MID 90'S BPM. PATIENT HAS CHRONIC SUPRAPUBIC CATHETER, PATENT DRAINING FROM RED COLOR AT BEGINNING OF SHIFT TO PINKISH WHEN THIS RN EMPTIED AT 1631. DR. REILLY IS AWARE OF THIS ISSUE, CTM. PATIENT SPOUSE CAME BY THIS PM UPDATE GIVEN TO SPOUSE. PER SPOUSE "HE HAS EPISODE ON/OFF RED COLOR URINE AT HOME, IT COULD BE FROM IRRITAION, BUT IT'S NORMAL FOR HIM." PATIENT HAS GOOD APPETITE, INCONTINENT OF BOWEL, ATTENDS CHANGED AND REPOSITIONED, BLE'S ELEVATED ON PILLOWS T/O SHIFT. PATIENT RECEIVED BEDBATH AND LINEN CHANGED, MIPELEX DRESSING TO COCCYX AND BILAT HEEL IN PLACED FOR PROTECTION. DRESSING CHANGED TO R OUTER HEEL PER ORDER. PATIENT RECEIVED IV ABX/SCHEDULED MEDS PER EMAR. VITAL SIGNS REVIEWED. CALL LIGHT IN REACH.
[2024-02-22 17:39] VITALS: BP 157/101
--- NOTE | 2024-02-22 17:50 | NUR ---
ADDITIONAL NOTE: PATIENT HAS BEEN HYPERTENSIVE THIS SHIFT EVEN c SCHEDULED MEDS GIVEN PER EMAR. NOTIFIED DR. TOMMIE bell THIS CONCERNED. PER DR. MAURER SHE WILL PLACED AN ORDER.
[2024-02-22] MEDS ORDERED: HydrALAZINE HCl 20 MG / ML 1ML Vial IV PRN (17:55)
[2024-02-22] MEDS ORDERED: Carvedilol 6.25 MG Tab PO SCH (18:00)
[2024-02-22 19:36] VITALS: BP 161/102
[2024-02-23 04:34] VITALS: BP 148/92
--- NOTE | 2024-02-23 05:09 | NUR ---
SHIFT SUMMARY PATIENT IS ALERT AND ORIENTED. PATIENT HAS HAS NO ACUTE EVENTS THIS SHIFT. VITAL SIGNS REVIEWED. PATIENT HAS HAD NO COMPLAINTS OF PAIN, NAUSEA, SOB OR VOMITTING THIS SHIFT. PATIENT HAS HAD ONE LARGE BM THIS SHIFT. BARLOW IS PATENT AND FLOWING IAN URINE TO GRAVITY. BED IN LOCKED AND LOWEST POSITION. CALL LIGHT IN PLACE. WILL MONITOR UNTIL SHIFT CHANGE.
[2024-02-23 05:41] LABS: BASOPHILS ABSOLUTE AUTO 0.03 K/mm3 (0.00-0.23); BASOPHILS PERCENT AUTO 0 % (0-2); EOSINOPHILS ABSOLUTE AUTO 0.28 K/mm3 (0.00-0.68); EOSINOPHILS PERCENT AUTO 3 % (0-6); Hematocrit 37.6 % (37.0-53.0); IMMATURE GRAN ABSOLUTE AUTO 0.04 K/mm3 (0.00-0.10); IMMATURE GRAN PERCENT AUTO 0 % (0-1); LYMPHOCYTES PERCENT AUTO 28 % (21-46); MONOCYTES ABSOLUTE AUTO 0.71 K/mm3 (0.16-1.47); MONOCYTES PERCENT AUTO 7 % (4-13); Mean Corpuscular HGB 30.6 pg (26.0-34.0); Mean Corpuscular HGB Conc 34.6 g/dL (31.5-36.5); Mean Corpuscular Volume 89 fL (80-100); Mean Platelet Volume 9.1 fL (9.1-12.4); NEUTROPHILS PERCENT AUTO 62 % (41-73); Platelet Count 280 K/mm3 (150-400); RDW Coefficient Variation 14.2 % (11.7-14.2); RDW Standard Deviation 45.5 fL (35.1-46.3); Red Blood Cell Count 4.25 M/mm3 (4.30-5.90); White Blood Cell Count 10.06 K/mm3 (4.00-11.30)
[2024-02-23 06:37] LABS: Bun/Creatinine Ratio 9.6 (12.0-20.0); Calcium, Blood 9.9 mg/dL (8.5-10.1); Creatinine, Blood 0.84 mg/dL (0.60-1.20); Potassium, Blood 3.2 mmol/L (3.5-5.5)
[2024-02-23 07:18] VITALS: BP 151/102
[2024-02-23] MEDS ORDERED: Potassium Chloride 20 MEQ TabCR PO ONE (08:00)
[2024-02-23 09:19] VITALS: BP 135/92
[2024-02-23] MEDS ORDERED: VISBIOME 112.51 EACH PO ×2 (10:50)
[2024-02-23] MEDS ORDERED: CARV6.25 PO ×2 (10:50)
[2024-02-23] MEDS ORDERED: AMOCLA875 PO ×2 (10:51)
--- NOTE | 2024-02-23 15:27 | NUR ---
SHIFT/DISCHARGE SUMMARY: PATIENT A/OX4, PLEASANT AND COOPERATIVE c CARE. PATIENT HAS HAD NO NEW ACUTE CHANGES THIS SHIFT. PATIENT STILL ON TELE, SR HR IN THE HIGH 70'S BPM. PATIENT RECEIVED IV ABX AND SCHEDULED MEDS PER EMAR. PATIENT SBP HAS IMPROVED. PATIENT HAS CHRONIC SUPRAPUBIC CATHETER, PATENT DRAINING CLEAR YELLOW URINE TO GRAVITY, CATH CARE AND REPOSITIONED T/O SHIFT. PATIENT HAS GREAT APPETITE AND NO BM THIS SHIFT. DRESSING TO R OUTER HEEL C/D/I. PATIENT HAS MIPELEX DRESSING TO COCCYX AND BILAT HEEL FOR PROTECTION. PIV WAS DC'D. PATIENT DISCHARGE HOME. DISCHARGE INSTRUCTIONS PACKET GIVEN TO PATIENT. EDUCATED PATIENT AND SPOUSE REGARDING ADMITTING DX'S OF SEPSIS D/T UTI, S/S, TX, CATHCARE, NEW RX AND TO F/U c PCP. PATIENT AND SPOUSE VERBALIZED UNDERSTANDING AND NO FURTHER QUESTIONS. RX WAS FAXED TO PATIENT PREFERRED PHARMACY-[facility]. ALL PATIENT PERSONAL BELONGINGS WERE SENT HOME c THE PATIENT. PATIENT LEFT THE ROOM AT 1520 VIA ELECTRIC WHEELCHAIR ACCOMPANIED BY SPOUSE TO [employer].
== END 2024-02-23 15:20 | disposition home or self-care (01) | DRG 698 ==
LOC: ER 14:21 → MEDS 23:51
PROVIDERS: Internal Medicine; Physician Assistant; Student in an Organized Health Care Education/Training Program; ADMIT Student in an Organized Health Care Education/Training Program
DX: T83.510A Infection and inflammatory reaction due to cystostomy catheter, initial encounter (principal); A41.51 Sepsis due to Escherichia coli [E. coli]; N39.0 Urinary tract infection, site not specified; Z16.20 Resistance to unspecified antibiotic; D68.2 Hereditary deficiency of other clotting factors; E11.9 Type 2 diabetes mellitus without complications; I10 Essential (primary) hypertension; G35 Multiple sclerosis; Z79.01 Long term (current) use of anticoagulants; Z86.718 Personal history of other venous thrombosis and embolism; Z79.899 Other long term (current) drug therapy; Z79.82 Long term (current) use of aspirin; Z79.4 Long term (current) use of insulin; Z98.52 Vasectomy status; Z98.890 Other specified postprocedural states; Y84.6 Urinary catheterization as the cause of abnormal reaction of the patient, or of later complication, without mention of misadventure at the time of the procedure
CPT/HCPCS: 36415; 71046; 80048; 80053; 81001; 82947; 83605; 83735; 84484; 85025; 87040; 87077; 87086; 87186; 93005; 93010; 96361; 96365; 99285-25; A9270; J0696; J1650; J1815; J2185; J7030; J7120

== ENCOUNTER 2024-02-27 02:28 | Day surgery (SDC) | payer MEDICARE, BC ==
[~2024-02-27 02:28] MED LIST changes: +AMOCLA875 PO; +CARV6.25 PO; +Pentoxifylline400 MG PO; +TIMO.25OPS BOTHEYES; +VISBIOME 112.51 EACH PO; +XARELTO20 MG PO; +ZANAFLEX413
== END 2024-02-27 23:59 | disposition home or self-care (01) ==
LOC: WOUND 02:28
DX: E11.621 Type 2 diabetes mellitus with foot ulcer (principal); L97.315 Non-pressure chronic ulcer of right ankle with muscle involvement without evidence of necrosis; E11.51 Type 2 diabetes mellitus with diabetic peripheral angiopathy without gangrene; I10 Essential (primary) hypertension; M19.90 Unspecified osteoarthritis, unspecified site; Z99.3 Dependence on wheelchair
CPT/HCPCS: A6196; G0463

== ENCOUNTER 2024-03-05 01:57 | Day surgery (SDC) | payer MEDICARE, BC | END 2024-03-05 23:32 | disposition home or self-care (01) | LOC: WOUND 01:57 | DX: E11.622 Type 2 diabetes mellitus with other skin ulcer (principal); L97.315 Non-pressure chronic ulcer of right ankle with muscle involvement without evidence of necrosis; E11.621 Type 2 diabetes mellitus with foot ulcer; I87.2 Venous insufficiency (chronic) (peripheral); E11.51 Type 2 diabetes mellitus with diabetic peripheral angiopathy without gangrene; L89.516 Pressure-induced deep tissue damage of right ankle | CPT/HCPCS: G0463 ==

== ENCOUNTER → 2024-03-12 | Day surgery (SDC) | payer MEDICARE, BC | END | disposition home or self-care (01) | LOC: WOUND | DX: E11.622 Type 2 diabetes mellitus with other skin ulcer (principal); L97.812 Non-pressure chronic ulcer of other part of right lower leg with fat layer exposed; L89.516 Pressure-induced deep tissue damage of right ankle; I87.2 Venous insufficiency (chronic) (peripheral); E11.51 Type 2 diabetes mellitus with diabetic peripheral angiopathy without gangrene; I10 Essential (primary) hypertension | CPT/HCPCS: A6213; G0463 ==

== ENCOUNTER 2024-03-19 03:33 | Day surgery (SDC) | payer MEDICARE, BC | END 2024-03-19 23:00 | disposition home or self-care (01) | LOC: WOUND 03:33 | DX: E11.622 Type 2 diabetes mellitus with other skin ulcer (principal); L97.315 Non-pressure chronic ulcer of right ankle with muscle involvement without evidence of necrosis; L97.812 Non-pressure chronic ulcer of other part of right lower leg with fat layer exposed; I10 Essential (primary) hypertension; E11.621 Type 2 diabetes mellitus with foot ulcer; I87.2 Venous insufficiency (chronic) (peripheral); E11.51 Type 2 diabetes mellitus with diabetic peripheral angiopathy without gangrene; L89.516 Pressure-induced deep tissue damage of right ankle | CPT/HCPCS: A6213; G0463 ==

== ENCOUNTER 2024-03-26 05:05 | Day surgery (SDC) | payer MEDICARE, BC | END 2024-03-26 23:00 | disposition home or self-care (01) | LOC: WOUND 05:05 | DX: E11.621 Type 2 diabetes mellitus with foot ulcer (principal); L97.512 Non-pressure chronic ulcer of other part of right foot with fat layer exposed; S81.811D Laceration without foreign body, right lower leg, subsequent encounter; I87.2 Venous insufficiency (chronic) (peripheral); E11.51 Type 2 diabetes mellitus with diabetic peripheral angiopathy without gangrene; I10 Essential (primary) hypertension | CPT/HCPCS: A6213; G0463 ==

== ENCOUNTER 2024-04-16 03:33 | Day surgery (SDC) | payer MEDICARE, BC | END 2024-04-16 23:00 | disposition home or self-care (01) | LOC: WOUND 03:33 | DX: E11.622 Type 2 diabetes mellitus with other skin ulcer (principal); L97.312 Non-pressure chronic ulcer of right ankle with fat layer exposed; L89.516 Pressure-induced deep tissue damage of right ankle; I10 Essential (primary) hypertension; I87.2 Venous insufficiency (chronic) (peripheral); I73.9 Peripheral vascular disease, unspecified | CPT/HCPCS: A6213; G0463 ==

== ENCOUNTER 2024-04-23 03:46 | Day surgery (SDC) | payer MEDICARE, BC | END 2024-04-23 23:00 | disposition home or self-care (01) | LOC: WOUND 03:46 | DX: E11.621 Type 2 diabetes mellitus with foot ulcer (principal); L89.513 Pressure ulcer of right ankle, stage 3; I87.2 Venous insufficiency (chronic) (peripheral); E11.51 Type 2 diabetes mellitus with diabetic peripheral angiopathy without gangrene; I10 Essential (primary) hypertension; S81.801A Unspecified open wound, right lower leg, initial encounter; X58.XXXA Exposure to other specified factors, initial encounter; R82.81 Pyuria | CPT/HCPCS: 81001; 87077; 87086; 87186; A6196; A6213; G0463 ==

== ENCOUNTER → 2024-04-23 | Outpatient (CLI) | payer MEDICARE, BC ==
[2024-04-23 14:15] LABS: Source, Urine Voided
[2024-04-23 15:09] LABS: Appearance, Urine Cloudy (Clear); Bilirubin, Urine Neg (Neg); Blood, Urine 5+ (Neg); Color, Urine Yellow (P-Yellow); Glucose Qualitative, Urine Neg (Neg); Ketones, Urine 1+ (Neg); Leukocyte Esterase, Urine 3+ (Neg); Nitrite, Urine Pos (Neg); Protein, Urine 4+ (Neg); Specific Gravity, Urine 1.025 (1.003-1.022); Urobilinogen, Urine NORM (Normal)
[2024-04-23 15:44] LABS: Bacteria Many /hpf; Calcium Oxalate Crystals Few /hpf; Red Blood Cells, Urine 50-100 /hpf (0-2); Squamous Epithelial Cells Rare /hpf (Few); White Blood Cells, Urine TNTC /hpf (0-5)
== END | disposition home or self-care (01) ==
LOC: LAB SHORT 14:12 → LAB 14:12
PROVIDERS: Family Medicine
DX: R82.81 Pyuria (principal)
CPT/HCPCS: 81001; 87077; 87086; 87186

== ENCOUNTER 2024-04-30 05:47 | Day surgery (SDC) | payer MEDICARE, BC ==
[2024-04-30] MEDS ORDERED: Lidocaine HCl 4% Cream 5 GM ONE (14:28)
== END 2024-04-30 23:00 | disposition home or self-care (01) ==
LOC: WOUND 05:47
DX: E11.621 Type 2 diabetes mellitus with foot ulcer (principal); L97.515 Non-pressure chronic ulcer of other part of right foot with muscle involvement without evidence of necrosis; S81.811D Laceration without foreign body, right lower leg, subsequent encounter; X58.XXXD Exposure to other specified factors, subsequent encounter; G35 Multiple sclerosis; E11.51 Type 2 diabetes mellitus with diabetic peripheral angiopathy without gangrene; I87.2 Venous insufficiency (chronic) (peripheral); I10 Essential (primary) hypertension; Z99.3 Dependence on wheelchair
CPT/HCPCS: A6196; A6213; A9270; G0463

== ENCOUNTER 2024-05-21 01:19 | Day surgery (SDC) | payer MEDICARE | END 2024-05-21 23:00 | disposition home or self-care (01) | LOC: WOUND 01:19 | DX: E11.622 Type 2 diabetes mellitus with other skin ulcer (principal); L97.312 Non-pressure chronic ulcer of right ankle with fat layer exposed; L89.516 Pressure-induced deep tissue damage of right ankle; E11.621 Type 2 diabetes mellitus with foot ulcer; E11.51 Type 2 diabetes mellitus with diabetic peripheral angiopathy without gangrene; I87.2 Venous insufficiency (chronic) (peripheral); I10 Essential (primary) hypertension | CPT/HCPCS: A6213; G0463 ==

== ENCOUNTER 2024-05-28 06:23 | Day surgery (SDC) | payer MEDICARE | END 2024-05-28 23:04 | disposition home or self-care (01) | LOC: WOUND 06:23 | DX: E11.622 Type 2 diabetes mellitus with other skin ulcer (principal); L97.312 Non-pressure chronic ulcer of right ankle with fat layer exposed; E11.621 Type 2 diabetes mellitus with foot ulcer; I87.2 Venous insufficiency (chronic) (peripheral); E11.51 Type 2 diabetes mellitus with diabetic peripheral angiopathy without gangrene; L89.516 Pressure-induced deep tissue damage of right ankle | CPT/HCPCS: A6213; G0463 ==

== ENCOUNTER 2024-06-11 03:19 | Day surgery (SDC) | payer MEDICARE | END 2024-06-11 23:00 | disposition home or self-care (01) | LOC: WOUND 03:19 | DX: E11.622 Type 2 diabetes mellitus with other skin ulcer (principal); L97.312 Non-pressure chronic ulcer of right ankle with fat layer exposed; I10 Essential (primary) hypertension; E11.621 Type 2 diabetes mellitus with foot ulcer; L89.516 Pressure-induced deep tissue damage of right ankle; I87.2 Venous insufficiency (chronic) (peripheral); E11.51 Type 2 diabetes mellitus with diabetic peripheral angiopathy without gangrene | CPT/HCPCS: A6213; G0463 ==

== ENCOUNTER 2024-06-25 02:14 | Day surgery (SDC) | payer MEDICARE | END 2024-06-25 23:00 | disposition home or self-care (01) | LOC: WOUND 02:14 | DX: E11.622 Type 2 diabetes mellitus with other skin ulcer (principal); L97.319 Non-pressure chronic ulcer of right ankle with unspecified severity; S81.801D Unspecified open wound, right lower leg, subsequent encounter; I10 Essential (primary) hypertension; L89.516 Pressure-induced deep tissue damage of right ankle; I87.2 Venous insufficiency (chronic) (peripheral); E11.51 Type 2 diabetes mellitus with diabetic peripheral angiopathy without gangrene; X58.XXXD Exposure to other specified factors, subsequent encounter | CPT/HCPCS: A6213; G0463 ==

== ENCOUNTER 2024-07-16 01:02 | Day surgery (SDC) | payer MEDICARE | END 2024-07-16 23:00 | disposition home or self-care (01) | LOC: WOUND 01:02 | DX: S81.811D Laceration without foreign body, right lower leg, subsequent encounter (principal); S81.801D Unspecified open wound, right lower leg, subsequent encounter; X58.XXXD Exposure to other specified factors, subsequent encounter; E11.51 Type 2 diabetes mellitus with diabetic peripheral angiopathy without gangrene; I87.2 Venous insufficiency (chronic) (peripheral); G35 Multiple sclerosis; I10 Essential (primary) hypertension; Z99.3 Dependence on wheelchair | CPT/HCPCS: A6213; G0463 ==

== ENCOUNTER 2024-07-23 02:48 | Day surgery (SDC) | payer MEDICARE | END 2024-07-23 23:00 | disposition home or self-care (01) | LOC: WOUND 02:48 | DX: E11.622 Type 2 diabetes mellitus with other skin ulcer (principal); L97.212 Non-pressure chronic ulcer of right calf with fat layer exposed; E11.621 Type 2 diabetes mellitus with foot ulcer; L89.516 Pressure-induced deep tissue damage of right ankle; I87.2 Venous insufficiency (chronic) (peripheral); E11.51 Type 2 diabetes mellitus with diabetic peripheral angiopathy without gangrene; I10 Essential (primary) hypertension | CPT/HCPCS: A6213; G0463 ==

== ENCOUNTER 2024-08-06 04:40 | Day surgery (SDC) | payer MEDICARE | END 2024-08-06 23:00 | disposition home or self-care (01) | LOC: WOUND 04:40 | DX: L89.893 Pressure ulcer of other site, stage 3 (principal); E11.621 Type 2 diabetes mellitus with foot ulcer; E11.622 Type 2 diabetes mellitus with other skin ulcer; L89.516 Pressure-induced deep tissue damage of right ankle; I87.2 Venous insufficiency (chronic) (peripheral); E11.51 Type 2 diabetes mellitus with diabetic peripheral angiopathy without gangrene; I10 Essential (primary) hypertension | CPT/HCPCS: A6213; G0463 ==

== ENCOUNTER 2024-08-13 01:32 | Day surgery (SDC) | payer MEDICARE | END 2024-08-13 23:00 | disposition home or self-care (01) | LOC: WOUND 01:32 | DX: L89.893 Pressure ulcer of other site, stage 3 (principal); I87.2 Venous insufficiency (chronic) (peripheral); E11.51 Type 2 diabetes mellitus with diabetic peripheral angiopathy without gangrene; G35 Multiple sclerosis; I10 Essential (primary) hypertension; Z99.3 Dependence on wheelchair | CPT/HCPCS: A6213; G0463 ==

== ENCOUNTER 2024-08-27 03:18 | Day surgery (SDC) | payer MEDICARE | END 2024-08-27 23:00 | disposition home or self-care (01) | LOC: WOUND 03:18 | DX: L89.893 Pressure ulcer of other site, stage 3 (principal); E11.621 Type 2 diabetes mellitus with foot ulcer; L97.212 Non-pressure chronic ulcer of right calf with fat layer exposed; E11.622 Type 2 diabetes mellitus with other skin ulcer; L89.516 Pressure-induced deep tissue damage of right ankle; I87.2 Venous insufficiency (chronic) (peripheral); E11.51 Type 2 diabetes mellitus with diabetic peripheral angiopathy without gangrene; I10 Essential (primary) hypertension | CPT/HCPCS: A6213; G0463 ==

== ENCOUNTER 2024-09-10 05:36 | Day surgery (SDC) | payer MEDICARE | END 2024-09-10 23:00 | disposition home or self-care (01) | LOC: WOUND 05:36 | DX: L89.893 Pressure ulcer of other site, stage 3 (principal); E11.622 Type 2 diabetes mellitus with other skin ulcer; L97.212 Non-pressure chronic ulcer of right calf with fat layer exposed; E11.621 Type 2 diabetes mellitus with foot ulcer; L89.516 Pressure-induced deep tissue damage of right ankle; I87.2 Venous insufficiency (chronic) (peripheral); E11.51 Type 2 diabetes mellitus with diabetic peripheral angiopathy without gangrene | CPT/HCPCS: A6213; G0463 ==

== ENCOUNTER 2024-09-24 03:22 | Day surgery (SDC) | payer MEDICARE | END 2024-09-24 23:00 | disposition home or self-care (01) | LOC: WOUND 03:22 | DX: E11.622 Type 2 diabetes mellitus with other skin ulcer (principal); L97.212 Non-pressure chronic ulcer of right calf with fat layer exposed; E11.621 Type 2 diabetes mellitus with foot ulcer; L89.516 Pressure-induced deep tissue damage of right ankle; I87.2 Venous insufficiency (chronic) (peripheral); E11.51 Type 2 diabetes mellitus with diabetic peripheral angiopathy without gangrene; G35 Multiple sclerosis; I10 Essential (primary) hypertension; Z99.3 Dependence on wheelchair | CPT/HCPCS: A6213; G0463 ==